=== PATIENT | female | born 1955 | race Asian ===

== ENCOUNTER 2018-01-20 14:10 | Inpatient (IN) | payer OTHER ==
[~2018-01-20] VITALS: Ht 149.9 cm; Wt 62.6 kg
[~2018-01-20 14:10] MED LIST: BENA20TA PO; DULO30EC PO; METF500T PO; OLAN10TA PO; PIOG45TA PO; RISP2TAB PO; SIMV40TA1 PO
[2018-01-20 14:21] VITALS: BP 177/89
--- NOTE | 2018-01-20 14:25 | NUR ---
62 YO FEMALE BIB FAMILY FOR FACE AND JAW PAIN FROM FALL, BRUISING TO JAW AND LEFT EYE NOTED. HX OF PARKINSONS AND DIABETES. PT IS RESTING W/ EMESIS BAG TO MOUTH. REPORTS THAT SHE FELL WHEN TRYING TO PICK SOMETHING OFF OF THE FLOOR. PT REPORTS PAIN 1/10 WHERE HER JAW/CHIN HIT THE GROUND. PERRLA INTACT. CMS INTACT. NO S/S OF ACUTE RESPIRATORY DISTRESS. PT BREATHING IS EVEN AND UNLABORED. LUNG SOUNDS CLEAR. ER MD FRANCO NOTIFIED OF PT CONDITION. SAFETY PRECAUTIONS IN PLACE. PT NEEDS MET AT THIS TIME. WILL CONTINUE TO MONITOR. Addendum: 01/20/[address] [facility] 62 YO FEMALE BIB FAMILY FOR FACE AND JAW PAIN FROM FALL, BRUISING TO JAW AND LEFT EYE NOTED. HX OF PARKINSONS AND DIABETES. PT IS RESTING W/ EMESIS BAG TO MOUTH. REPORTS THAT SHE FELL WHEN TRYING TO PICK SOMETHING OFF OF THE FLOOR. PT REPORTS PAIN 1/10 WHERE HER JAW/CHIN HIT THE GROUND. PERRLA INTACT. A&O X 4. GCS 15. CMS INTACT. NO S/S OF ACUTE RESPIRATORY DISTRESS. PT BREATHING IS EVEN AND UNLABORED. LUNG SOUNDS CLEAR. ER MD FRANCO NOTIFIED OF PT CONDITION. SAFETY PRECAUTIONS IN PLACE. PT NEEDS MET AT THIS TIME. WILL CONTINUE TO MONITOR.
--- NOTE | 2018-01-20 15:33 | NUR ---
PT TAKEN TO CT VIA GURIRIS ACCOMPANIED BY MARKETING WRITER.
--- NOTE | 2018-01-20 15:46 | NUR ---
PT RETUERNED FROM CT
--- NOTE | 2018-01-20 16:00 | NUR ---
ALMA ROSA CORTES REPORTED THAT PT WAS STRAIGHT CATHETERIZED, BUT NO URINE WAS PRESENT BECAUSE PT VOIDED PRIOR TO ARRIVING TO ER. ALMA ROSA CORTES REPORTED SHE IS LEAVING CATHETER IN UNTIL URINE PRESENT IN BAG TO PREVENT RE-CATHETERIZING PT LATER. PT UNABLE TO AMBULATE TO RESTROOM DUE TO UNSTEADY GAIT. UNABLE TO AMBULATE W/O FULL SUPPORT APPLIED TO FAMILY MEMBER. SAFETY PRECAUTIONS IN PLACE. WILL CONTINUE TO MONITOR.
[2018-01-20] MEDS ORDERED: LAM200 PO (16:05)
[2018-01-20] MEDS ORDERED: CARB1TAB18 PO (16:05)
--- NOTE | 2018-01-20 16:10 | NUR ---
PT VOIDED 300 ML OF CLEAR, YELLOW URINE. STRAIGHT CATHETER REMOVED.
[2018-01-20 16:14] LABS: HEMATOCRIT 42.2 % (36-48); HEMOGLOBIN 13.3 g/dL (12.0-16.0); MEAN CORPUSCULAR HEMOGLOBIN 27 pg (27-31); MEAN CORPUSCULAR HGB CONC 32 g/dL (33-37); MEAN CORPUSCULAR VOLUME 87 fL (80-94); PLATELET COUNT (AUTO) 242 K/uL (140-450); RED BLOOD CELL COUNT(AUTO) 4.86 MIL/uL (4.20-5.40); RED CELL DISTRIBUTION WIDTH 13.3 % (11.6-13.7); WHITE BLOOD COUNT (AUTO) 17.4 K/uL (4.8-10.8)
[2018-01-20 16:24] LABS: APPEARANCE,URINE CLEAR (CLEAR); BILIRUBIN,URINE NEGATIVE (NEGATIVE); BLOOD, URINE 2+ (NEGATIVE); COLOR,URINE YELLOW (YELLOW); LEUKOCYTE ESTERASE ,URINE NEGATIVE (NEGATIVE); NITRITE, URINE NEGATIVE (NEGATIVE); UGLUCOSE NEGATIVE (NEGATIVE)
[2018-01-20 16:29] LABS: ALBUMIN 4.2 g/dL (3.4-5.0); ANION GAP 14.7 (8-16); CARBON DIOXIDE 32.4 mmol/L (21-32); CREATININE 1.1 mg/dL (0.6-1.3); POTASSIUM 3.1 mmol/L (3.5-5.1); TOTAL BILIRUBIN 0.6 mg/dL (0.0-1.0)
[2018-01-20 16:30] LABS: LYMPHOCYTES % (MANUAL) 4 % (20-46); MONOCYTES % (MANUAL) 3 % (5-12)
[2018-01-20 16:38] LABS: RBC,URINE 3-10 (FEW) /HPF (0-5); WBC,URINE 0-5 (RARE) /HPF (0-5)
[2018-01-20] MEDS ORDERED: ACETAMINOPHEN 325 MG TAB PO PRN (17:35)
[2018-01-20] MEDS ORDERED: HYDROcodone/APAP 10/325 MG 1 TAB TAB PO PRN (18:15)
[2018-01-20] MEDS ORDERED: KCL 20 MEQ/WATER INJ PREMIX 200 ML IV ONE (18:25)
--- NOTE | 2018-01-20 19:05 | NUR ---
Patient will be admitted to care of DR LYNN. Admited toTELE. Will go to room 121A. Belongings list completed. Report to ALMA ROSA ELDRIDGE.
[2018-01-20] MEDS ORDERED: DEXTROSE 50% 50 ML SYR IVP PRN (19:15)
[2018-01-20] MEDS ORDERED: INSULIN LISPRO SLIDING SCALE 100 UNITS/ML VIAL SUBQ PRN (19:15)
[2018-01-20 19:30] VITALS: BP 126/86
--- NOTE | 2018-01-20 19:30 | NUR ---
REPORT RECEIVED FROM DAY NURSE JAZMYN ST. PT IN STABLE CONDITION. AAOX3, ON ROOM AIR. NO S/S OF DISTRESS NOTED. PT HAS BRUISING TO L EYE, BRUISING TO CHIN, AND SMALL LACERATIONS ON LOWER LIP. IV TO R WRIST 22G, PATENT AND INTACT. INFUSING WELL. SKIN WARM AND DRY TO TOUCH. RR EVEN/UNLABORED. INITIAL ASSESSMENT COMPLETED. PLAN OF CARE DISCUSSED WITH PT. PT NEEDS REINFORCEMENT. ALL SAFETY PRECAUTIONS MET, CALL LIGHT WITHIN REACH, WILL CONTINUE TO MONITOR.
--- NOTE | 2018-01-20 19:45 | NUR ---
PT REPORTS THAT ROOMMATE TOOK HOME MEDICATIONS HOME AND PT DOES NOT KNOW HER MEDICATIONS.
--- NOTE | 2018-01-20 20:00 | NUR ---
CALLED SON TO ASK WHAT MEDICATIONS PT IS ON AND TO ASK ABOUT MEDICAL HISTORY BUT SON STATES HE "DOES NOT KNOW ANYTHING ABOUT HIS MOTHERS HISTORY HE JUST LIVES WITH HER." SON STATED HE WILL BRING IN MEDICATION BOTTLES
--- NOTE | 2018-01-20 20:30 | NUR ---
PTS HOME MEDICATIONS BROUGHT IN BY SON. MADE DR. PRATHER AWARE OF PTS MEDICATIONS
[2018-01-20 21:07] LABS: PROTHROMBIN TIME 10.4 secs (10.8-13.4)
[2018-01-20] MEDS: NACL 0.9% 1,000 ML IV SCH (21:18)
[2018-01-20] MEDS: OLANZapine 5 MG TAB PO SCH (21:19)
[2018-01-20] MEDS: ATORVASTATIN 20 MG TAB PO SCH (21:19)
[2018-01-20] MEDS: BLOOD GLUCOSE MONITORING 1 DEV DEV FS SCH (21:28)
[2018-01-20 21:48] LABS: AMYLASE 92 U/L (25-115); CHOL/HDL RATIO 2.3 (1-4.5); HDL CHOLESTEROL 66 mg/dL (40-60); LDL (CALC) 76 mg/dL (60-100); LIPASE 143 U/L (73-393); THYROID STIMULATING HORMONE 0.76 uIU/mL (0.34-3.74); TRIGLYCERIDES 60 mg/dL (30-150)
--- NOTE | 2018-01-20 22:00 | NUR ---
PT IN STABLE CONDITION AT THIS TIME. NO S/S OF DISTRESS NOTED
[2018-01-21] VITALS (7 sets, daily range): BP systolic 128–195; BP diastolic 68–106
--- NOTE | 2018-01-21 | NUR ---
PT RESTING COMFORTABLY IN BED. NO S/S OF DISTRESS NOTED. VS STABLE
--- NOTE | 2018-01-21 04:15 | NUR ---
PTS B/P 174/92, PT VOMITING. PAGEJerad PRATHER Addendum: 01/21/18 at 0522 by Karen Wilkins RN PT HAS NO S/S OF DISTRESS, RR EVEN/UNLABORED
--- NOTE | 2018-01-21 04:47 | NUR ---
DR. PRATHER MADE AWARE, WILL COME TO SEE PT
[2018-01-21] MEDS: ONDANSETRON 4 MG/2 ML VIAL IVP PRN ×2 (05:06→11:56)
--- NOTE | 2018-01-21 05:22 | NUR ---
PT HAS NO S/S OF DISTRESS. RR EVEN/UNLABORED
[2018-01-21] MEDS: BLOOD GLUCOSE MONITORING 1 DEV DEV FS SCH ×4 (06:34→20:22)
--- NOTE | 2018-01-21 07:33 | NUR ---
REPORT GIVEN TO DAY SHIFT NURSE FOR CONTINUITY OF CARE, PT IN STABLE CONDITION. NO S/S OF DISTRESS NOTED.
[2018-01-21 07:44] LABS: BASOPHILS # (AUTO) 0.2 K/uL (0.00-0.22); BASOPHILS % (AUTO) 2.6 % (0.0-2.0); EOSINOPHILS # (AUTO) 0.1 K/uL (0-0.4); HEMATOCRIT 39.2 % (36-48); HEMOGLOBIN 12.7 g/dL (12.0-16.0); MEAN CORPUSCULAR HEMOGLOBIN 28 pg (27-31); MEAN CORPUSCULAR HGB CONC 32 g/dL (33-37); MEAN CORPUSCULAR VOLUME 86 fL (80-94); MONOCYTES # (AUTO) 0.5 K/uL (0.8-1.0); MONOCYTES % (AUTO) 6.1 % (1.7-9.3); NEUTROPHILS # (AUTO) 7.1 K/uL (1.8-7.7); NEUTROPHILS % (AUTO) 79.3 % (42.2-75.2); PLATELET COUNT (AUTO) 238 K/uL (140-450); RED BLOOD CELL COUNT(AUTO) 4.54 MIL/uL (4.20-5.40); WHITE BLOOD COUNT (AUTO) 8.9 K/uL (4.8-10.8)
[2018-01-21 07:58] LABS: MAGNESIUM 1.7 mg/dL (1.8-2.4); PHOSPHORUS 3.5 mg/dL (2.5-4.9)
[2018-01-21 08:09] LABS: ANION GAP 13.5 (8-16); CARBON DIOXIDE 30.4 mmol/L (21-32)
[2018-01-21] MEDS: CARBIDOPA/LEVODOPA 25/100 MG 1 TAB PO SCH ×3 (08:40→16:56)
[2018-01-21] MEDS: metFORMIN 500 MG TAB PO SCH ×2 (08:40→16:56)
[2018-01-21] MEDS: DOCUSATE SODIUM 100 MG GELCAP PO SCH (08:40)
[2018-01-21] MEDS: PANTOPRAZOLE 40 MG TABEC PO SCH (08:40)
[2018-01-21 08:48] LABS: POTASSIUM 2.9 mmol/L (3.5-5.1)
[2018-01-21] MEDS ORDERED: BENAZEPRIL 20 MG TAB PO SCH (09:00)
[2018-01-21] MEDS ORDERED: KCL 20 MEQ/WATER INJ PREMIX 200 ML IV SCH (09:55)
[2018-01-21] MEDS ORDERED: MAG SULF 2000 MG/WATER PREMIX 50 ML IV SCH (09:57)
--- NOTE | 2018-01-21 10:44 | NUR ---
PATIENT HAS BEEN SCREENED AND CATEGORIZED MODERATE NUTRITION RISK. PATIENT WILL BE SEEN WITHIN 3-5 DAYS OF ADMISSION. 01/23/18 - 01/25/[address]
--- NOTE | 2018-01-21 12:09 | NUR ---
PATIENT COMPLAINED OF DIZZINESS, PAIN, AND EMESIS X2. MEDS WERE GIVEN PER ORDER. WILL CONTINUE TO MONITOR. US TECH AT BEDSIDE
--- NOTE | 2018-01-21 13:13 | NUR ---
DR. HENDERSON WAS MADE AWARE OF PATIENT'S COMPLAINT OF DIZZINESS, CONSISTENT HIGH BP, ADVISED TO CONTINUE TO MONITOR Addendum: 01/21/18 at 1315 by Nicole Wallace RN DR. RUIZ IS AT BEDSIDE
[2018-01-21] MEDS ORDERED: POTASSIUM CHLORIDE 40 MEQ, LIDOCAINE 1% 25 MG in NACL 0.9% 250 ML IV SCH (14:00)
[2018-01-21] MEDS ORDERED: MECLIZINE 25 MG TAB PO PRN (14:20)
--- NOTE | 2018-01-21 15:06 | NUR ---
PATIENT AWAKE, ALERT. RESPIRATION EVEN, UNLABOR ON ROOM AIR. PATIENT STATED SHE IS HUNGRY, EXPLAINED TO THE PATIENT WHY SHE NEEDS TO BE ON NPO DUE TO NAUSEA/ VOMITING. PATIENT VERBALIZED UNDERSTANDING. NO DISTRESS NOTED AT THIS TIME
--- NOTE | 2018-01-21 17:07 | NUR ---
PATIENT AWAKE, ALERT. RESPIRATION EVEN, UNLABOR ON ROOM AIR. COMPLAINED OF BEING HUNGRY, EXPLAINED TO PATIENT SHE STILL NEEDS NPO TO PREVENT NAUSEA/ VOMITING. PATIENT VERBALIZED UNDERSTANDING. CALL LIGHT WITHIN REACH
[2018-01-21] MEDS ORDERED: GABA-638 PO (18:08)
[2018-01-21] MEDS ORDERED: MIRT15TA PO (18:08)
[2018-01-21 19:09] LABS: ANION GAP 13.4 (8-16); CARBON DIOXIDE 30.6 mmol/L (21-32); CREATININE 1.1 mg/dL (0.6-1.3)
--- NOTE | 2018-01-21 19:17 | NUR ---
ENDORSEMENT GIVEN TO SOCIAL WORKER AIDE NURSE. PATIENT IS STABLE AT THIS TIME
--- NOTE | 2018-01-21 19:19 | NUR ---
RECEIVED REPORT FROM NIGHT RN. PT RESTING IN BED. AAOX4. NO S/S OF ACUTE DISTRESS. PT DENIES PAIN AT THIS TIME. IV SITE PATENT AND INTACT. PLAN OF CARE DISCUSSED. CALL LIGHT WITHIN REACH. SAFETY MEASURES ENSURED. WILL CONTINUE TO MONITOR.
[2018-01-21] MEDS: NACL 0.9% 1,000 ML IV SCH (20:22)
[2018-01-21] MEDS: ATORVASTATIN 20 MG TAB PO SCH (20:23)
[2018-01-21] MEDS: OLANZapine 5 MG TAB PO SCH (20:23)
--- NOTE | 2018-01-21 20:25 | NUR ---
DUE MEDS GIVEN. NO S/S OF ACUTE DISTRESS. CALL LIGHT WITHIN REACH. SAFETY MEASURES ENSURED. WILL CONTINUE TO MONITOR.
[2018-01-22] VITALS: BP 142/85
[2018-01-22 04:00] VITALS: BP 154/85
[2018-01-22] MEDS: BLOOD GLUCOSE MONITORING 1 DEV DEV FS SCH ×4 (06:38→20:05)
--- NOTE | 2018-01-22 07:17 | NUR ---
RECEIVED REPORT FROM TORCH STRAIGHTENER AND HEATER NURSE AT BEDSIDE FOR CONTINUITY OF CARE. PATEINT RESTING IN BED WITH EYES CLOSED. RESP EVEN AND UNLABORED.PATIENT WITH R WRIST 22G WITH NS @20ML/HR, PATIENT WITH NOTED DISCOLORATIONS TO FACE.
--- NOTE | 2018-01-22 07:18 | NUR ---
ENDORSED PLAN OF CARE TO DAY RN. PT REMAINS STABLE
[2018-01-22 07:41] LABS: ANION GAP 15.4 (8-16); CREATININE 1.1 mg/dL (0.6-1.3); POTASSIUM 3.4 mmol/L (3.5-5.1)
[2018-01-22 07:50] VITALS: BP 157/75
--- NOTE | 2018-01-22 08:00 | NUR ---
INITIAL ASSESSMENT PERFORMED. VSS.PT AWAKE IN BED STATING SHE WOULD LIKE TO TALK TO MD. INFORMED PT THEY WOULD BE COMING AROUND WHEN THEY DO ROUNDS. RESPONDS TO QUESTIONS APPROPRIATELY. PERRL, BILATERAL 3MM PUPILS.DENIES [place]. NO C/O PAIN. NO ACUTE DISTRESS NOTED. LUNG SOUNDS CLEAR X ALL LOBES. NO SOB NOTED. BOWEL SOUNDS ACTIVE X4 LOBES. IV SITE TO R WRIST 22G. PATENT AND INTACT. NS @20ML/HR. SKIN INTACT.DISCUSSED PLAN OF CARE WITH PT, STATED UNDERSTANDING AND AGREEMENT. BED IN LOW POSITION. CALL LIGHT WITHIN REACH. WILL CONT TO MONITOR.
[2018-01-22] MEDS: DOCUSATE SODIUM 100 MG GELCAP PO SCH (08:33)
[2018-01-22] MEDS: PANTOPRAZOLE 40 MG TABEC PO SCH (08:34)
[2018-01-22] MEDS: BENAZEPRIL 20 MG TAB PO SCH (08:34)
[2018-01-22] MEDS: metFORMIN 500 MG TAB PO SCH ×2 (08:34→16:25)
[2018-01-22] MEDS: CARBIDOPA/LEVODOPA 25/100 MG 1 TAB PO SCH ×3 (08:35→16:25)
--- NOTE | 2018-01-22 08:35 | NUR ---
ADMINISTERED SCHEDULED MEDICATIONS ORDERED. PT TOLERATED WELL . PT RESTING IN BED WITH EYES CLOSED . NO ACUTE DISTRESS. RESPONDS APPROPRIATELY. CALL LIGHT WITHIN REACH. WILL CONT TO MONITOR.
--- NOTE | 2018-01-22 09:00 | NUR ---
ADMINISTERED SCHEDULED MEDICATIONS ORDERED WITH TORADOL PATIENT C/O MUSCULAR AND ABD PAIN 04/11 .CALL LIGHT WITHIN REACH. WILL CONT TO MONITOR PT. Addendum: 01/22/18 at 1059 by nAeta Pink RN WRONG PATIENT DISREGARD NOTE
--- NOTE | 2018-01-22 10:30 | NUR ---
PT IN BED RESTING WITH EYES CLOSED. EASILY WOKEN. RESPONDS APPROPRIATELY TO QUESTIONS. CALL LIGHT WITHIN REACH. WILL CONT TO MONITOR PT.
--- NOTE | 2018-01-22 10:40 | NUR ---
ADMINISTERED MAALOX AND MORPHINE ORDERED. PATIENT CONT TO C/O 06/11 PAIN ABDOMINALLY. HR 55, PER PT BASELINE HR BELOW 60. CALL LIGHT WITHIN REACH. WILL CONT TO MONITOR PT. Addendum: 01/22/18 at 1059 by Aneta Pink RN WRONG PATIENT DISREGARD NOTE
--- NOTE | 2018-01-22 12:00 | NUR ---
FRIEND AT BEDSIDE. PT ALERT AND ABLE TO MAKE NEEDS KNOWN. NO ACUTE DISTRESS NOTED. PATIENT AT THE TIME REFUSING PLACEMENT IN SNF. SS PRESENT DURING CONVERSATION. BED ALARM ON. CALL LIGHT WITHIN REACH. WILL CONT TO MONITOR PT.
[2018-01-22] MEDS ORDERED: CALCIUM CARBONATE 500 MG TAB PO SCH (12:30)
[2018-01-22] MEDS ORDERED: POTASSIUM CHLORIDE 20% 40 MEQ/15 ML UDC PO SCH (12:30)
--- NOTE | 2018-01-22 13:00 | NUR ---
Social Director Notes: I call Patient's Son Chauncey Norman at to discuss, confirm and gather patient's information. I provided Patient's updated status, progress and discussed MD recommendations to SNF for Physical Therapy. According to son Chauncey Patient is at home sometimes alone and that is how she hurt herself when she took the fall. Per Patient's son it is important that Patient gets the care she needs and go to SNF for her Physical Therapy. I agreed with Mr. Norman however; I also explained to him that Patient needs to be on agreement in order to be placed on a SNF, and suggested him to have a conversation may be even explained further about the process, length of stay and therapy she will be benefiting form going to SNF in a short term only now that he knows and is aware with information to provide to her in her language. I also discuss with Mr. Norman that patient was worried to be left there for a longer term and it is possible that information did not translate well in her language and hearing it from him it will assist patient and her concerns. He agreed and stated that he will visit his mother manjinder and will talk to her. Mr. Norman thank me for my information and assistance, stated having no further questions and concerns and I ended the call.
--- NOTE | 2018-01-22 13:30 | NUR ---
REPORTED TO DR HENDERSON ORTHOSTATIC BLOOD PRESSURE OF LAYING 177/82, HR 76. SITTING 179/84 HR 76. PATIENT REFUSED TO STAND UP. PT VERBALIZED SHE WAS UNABLE TO STAND. Addendum: 01/22/18 at 1410 by Aneta Pink RN PT VOMITED 200ML WHEN SAT UP. DR HENDERSON MADE AWARE.
--- NOTE | 2018-01-22 14:34 | NUR ---
1420 SPOKE WITH PT PER PTS REQUEST AND SHE STATED THAT SHE DOES WANT TO GO TO A NURSING FACILITY FOR PT AND DID WANT IT IN [place]. IN AGREEMENT TO [facility] THE PHYSICIANS SEEING HER HERE CAN SEE HER AT THE SNF.
--- NOTE | 2018-01-22 15:40 | NUR ---
PATIENT IN BED. NO ACUTE DISTRESS NOTED. NO C/O PAIN OR DISCOMFORT. BED ALARM ON. CALL LIGHT WITHIN REACH. WILL CONT TO MONITOR PT.
--- NOTE | 2018-01-22 15:41 | NUR ---
FAXED INQUIRY TO [facility] [phone] PHONE [phone]
[2018-01-22 16:00] VITALS: BP 166/72
--- NOTE | 2018-01-22 16:25 | NUR ---
ADMINISTERED SCHEDULED MEDICATIONS ORDERED WELL MECLIZINE FOR DIZZINESS.BED ALARM ON. CALL LIGHT WITHIN REACH. WILL CONT TO MONITOR PT.
--- NOTE | 2018-01-22 19:20 | NUR ---
ENDORSED REPORT TO VOICE AND DATA TECHNICIAN NURSE AT BEDSIDE FOR CONTINUITY OF CARE. PATIENT STABLE
--- NOTE | 2018-01-22 19:21 | NUR ---
PATIENT REPORT RECEIVED FROM MORNING NURSE AT BEDSIDE. PATIENT IS AWAKE AND ALERT. NO SIGNS AND SYMPTOMS OF DISTRESS NOTED. FAMILY MEMBER IS AT BEDSIDE. IV SITE NOTED ON RIGHT HAND, IVF INFUSING WELL. PLAN OF CARE DISCUSSED WITH PATIENT. PATIENT VERBALIZED UNDERSTANDING. BED IN LOWEST POSITION, SIDE RAILS UP AND CALL LIGHT WITHIN REACH. WILL CONTINUE TO MONITOR.
[2018-01-22] MEDS: NACL 0.9% 1,000 ML IV SCH (20:20)
[2018-01-22] MEDS: OLANZapine 5 MG TAB PO SCH (20:23)
[2018-01-22] MEDS: ATORVASTATIN 20 MG TAB PO SCH (20:23)
--- NOTE | 2018-01-22 20:34 | NUR ---
DR PRATHER MADE AWARE OF PATIENT'S BP OF 160/78
[2018-01-22] MEDS: METOPROLOL SUCCINATE 50 MG TABER PO SCH (22:12)
--- NOTE | 2018-01-22 23:00 | NUR ---
CHECKED ON PATIENT. PATIENT IS ASLEEP. NO SIGNS AND SYMPTOMS OF DISTRESS NOTED. BREATHING EVEN AND UNLABORED. WILL CONTINUE TO MONITOR.
[2018-01-23] VITALS: BP_SYST 156; BP_SYST 165; BP_DIAS 73; BP_DIAS 81
--- NOTE | 2018-01-23 02:00 | NUR ---
CHECKED ON PATIENT. PATIENT IS ASLEEP. NO SIGNS AND SYMPTOMS OF DISTRESS NOTED. WILL CONTINUE TO MONITOR
[2018-01-23] MEDS: BLOOD GLUCOSE MONITORING 1 DEV DEV FS SCH ×4 (06:33→20:29)
--- NOTE | 2018-01-23 07:15 | NUR ---
PATIENT REPORT GIVEN TO MORNING NURSE AT BEDSIDE FOR CONTINUITY OF CARE. PATIENT IS IN STABLE CONDITION.
--- NOTE | 2018-01-23 07:16 | NUR ---
RECEIVED REPORT FROM VELOCITY SHOOTER NURSE MAGDALENA AT BEDSIDE FOR CONTINUITY OF CARE. PT IS AWAKE AND ORIENTED. INTRODUCED SELF AND UPDATED BOARD. PT DENIES PAIN. IV TO R WRIST 22G INTACT. NS @ 20ML/HR. LUNG SOUNDS CLEAR ON AUSCULTATION. ON RA O2 SAT 97%. NO SIGNS OF DISTRESS. BED IN LOW POSITION, WHEELS LOCKED, CALL LIGHT WITHIN REACH. WILL CONTINUE TO MONITOR.
[2018-01-23 07:42] LABS: ANION GAP 11.1 (8-16); CARBON DIOXIDE 31.3 mmol/L (21-32); CREATININE 1.1 mg/dL (0.6-1.3); POTASSIUM 3.4 mmol/L (3.5-5.1)
[2018-01-23 08:00] VITALS: BP 161/84
[2018-01-23] MEDS: DOCUSATE SODIUM 100 MG GELCAP PO SCH (08:23)
[2018-01-23] MEDS: CARBIDOPA/LEVODOPA 25/100 MG 1 TAB PO SCH ×3 (08:23→17:25)
[2018-01-23] MEDS: metFORMIN 500 MG TAB PO SCH ×2 (08:24→17:25)
[2018-01-23] MEDS: BENAZEPRIL 20 MG TAB PO SCH (08:24)
[2018-01-23] MEDS: PANTOPRAZOLE 40 MG TABEC PO SCH (08:24)
[2018-01-23] MEDS ORDERED: POTASSIUM CHLORIDE 20% 40 MEQ/15 ML UDC PO SCH (09:00)
[2018-01-23] MEDS ORDERED: CALCIUM CARBONATE 500 MG TAB PO SCH (09:00)
--- NOTE | 2018-01-23 10:45 | NUR ---
ASSISTED PT TO BEDPAN. REINFORCED TEACHING FOR CALL LIGHT. PT VERBALIZED UNDERSTANDING. RESIDENT CAME IN AND SPOKE WITH PT. AWARE FOR PLAN FOR SNF PLACEMENT. NO COMPLAINTS AT THIS TIME. BED ALARM ON, CALL LIGHT WITHIN REACH. WILL CONTINUE TO MONITOR.
--- NOTE | 2018-01-23 12:43 | NUR ---
PT WAS SITTING AT EDGE OF BED. INFORMED PT TO WAIT FOR PHYSICAL THERAPY TO GET UP OUT OF PT. ASSISTED PT BACK TO BED. PT VERBALIZED UNDERSTANDING. SITTING UP EATING LUNCH TRAY. BED ALARM ON, WILL CONTINUE TO MONITOR.
--- NOTE | 2018-01-23 14:10 | NUR ---
PT UP AND OUT OF BED WITH PHYSICAL THERAPY
--- NOTE | 2018-01-23 15:01 | NUR ---
Social Service Note: Mendy from [facility] / came to evaluate patient, she stated patient has been accepted and she will contact charge nurse Jennifer and provide her with room number.
--- NOTE | 2018-01-23 15:24 | NUR ---
RECEIVED CALL FROM [facility] STATED PT CAN GO TO ROOM [address] UNDER DR[address] COOK. INSPECTOR METAL CAN TIME 6PM.
--- NOTE | 2018-01-23 15:30 | NUR ---
PHYSICAL THERAPY CO-SIGN The Physical Therapy Progress Notes documented by Night Time Nanny have been reviewed. I concur with the documentation of this MANAGER BUSINESS INTELLIGENCE. Plan: continue PT as per plan of care if she remains in this hospital. Reviewed/Co-Signed by: Reina Cervantes,PT Documentation Done by: Kari Caldwell,MANAGER BUSINESS INTELLIGENCE Addendum: 01/23/18 at 1546 by Reina Cervantes PT Amended: Links added.
[2018-01-23 16:00] VITALS: BP 141/75
[2018-01-23] MEDS ORDERED: BENA20TA5 PO (16:00)
[2018-01-23] MEDS ORDERED: OSC500 PO (16:00)
[2018-01-23] MEDS ORDERED: CARB1TAB17 PO (16:00)
[2018-01-23] MEDS ORDERED: MECL-272 PO (16:00)
--- NOTE | 2018-01-23 16:45 | NUR ---
CALLED PT'S SON EKRRI AND LEFT MESSAGE ABOUT PT TRANSFER TO [facility] TODAY. LEFT CALL BACK NUMBER
--- NOTE | 2018-01-23 18:53 | NUR ---
CALLED [facility] AND GAVE REPORT TO BARRON. FOUNTAIN ROLLER ASSEMBLER TIME AT 8PM. GAVE CALL BACK NUMBER
--- NOTE | 2018-01-23 19:43 | NUR ---
ENDORSED PT TO DRIER TENDER NAPHTHALENE NURSE SHIVANI AT BEDSIDE FOR CONTINUITY OF CARE. PT IN STABLE CONDITION.
--- NOTE | 2018-01-23 19:44 | NUR ---
RECEIVED REPORT FROM DAY SHIFT RN. PATIENT AWAKE ALERT, CONFUSED. NO S/S OF DISTRESS NOTED, RESPIRATION EVEN AND UNLABORED, ON ROOM AIR. PATIENT IS SITTING UP IN THE BED, WAITING TO BE PICKED UP. PER DAY SHIFT RN, PATIENT WILL BE TRANSFERRED TO [facility], AND MANAGER PRODUCT DESIGN TIME WILL BE 1999. PATIENT'S SON IS AWARE THAT PATIENT WILL BE TRANSFERRED TO [facility]. CALL LIGHT WITHIN REACH, SAFETY MEASURE ENSURED, WILL CONTINUE TO MONITOR.
[2018-01-23 20:00] VITALS: BP 138/83
[2018-01-23] MEDS: ATORVASTATIN 20 MG TAB PO SCH (20:40)
[2018-01-23] MEDS: NACL 0.9% 1,000 ML IV SCH (20:40)
[2018-01-23] MEDS: METOPROLOL SUCCINATE 50 MG TABER PO SCH (20:40)
--- NOTE | 2018-01-23 20:40 | NUR ---
DUE MEDICATION GIVEN, PATIENT TOLERATED WELL. NO S/S OF DISTRESS NOTED, RESPIRATION EVEN AND UNLABORED, CALL LIGHT WITHIN REACH, SAFETY MEASURE ENSURED, WILL CONTINUE TO MONITOR.
[2018-01-23] MEDS: OLANZapine 5 MG TAB PO SCH (20:41)
--- NOTE | 2018-01-23 22:26 | NUR ---
PATIENT WAS PICKED UP BY ANTHONY FROM [facility] IN STABLE CONDITION. BRUISE STILL NOTED ON THE FACE, CHARGE NURSE IS NOTIFIED.
--- NOTE | 2018-01-23 22:55 | NUR ---
ANTHONY FROM THE [facility] CALLED ME SAID," THE PATIENT DOES NOT WANT TO GO INTO THE [facility]." INFORMED CHARGE NURSE, ASKED ANTHONY IF WE COULD WHEEL HER TO THE [facility], ANTHONY CALLED HER CLOTHING BUSHELER AND AGREED TO WHEEL THE PATIENT TO THE [facility]. CHARGE NURSE AND ONE SECURITY AND ANTHONY WHEELED THE PATIENT TO THE [facility]. Addendum: 01/24/18 at 0614 by Lucy Hernández RN CHARGE NURSE TRIED TO CALL HER SON, BUT NO ONE ANSWERED THE PHONE.
--- NOTE | 2018-01-23 23:25 | NUR ---
CHARGE NURSE CAME BACK AND SAID," THE LADY WAS YELLING,' I WANT TO GO BACK TO MY ROOM, I DON'T WANT TO GO THERE, MY SON CANNOT PAY FOR THAT' WHEN WE WERE WHEELING HER TO THE [facility]. HOWEVER, THE PATIENT WAS RECEIVED BY THE NURSE FROM THE [facility]."
== END 2018-01-23 23:00 | DRG 640 ==
LOC: MED 14:10 → MTU 17:46
PROVIDERS: ADMIT Student in an Organized Health Care Education/Training Program; ATTEND Student in an Organized Health Care Education/Training Program
DX: E87.6 Hypokalemia (principal); N17.0 Acute kidney failure with tubular necrosis; D68.59 Other primary thrombophilia; E11.69 Type 2 diabetes mellitus with other specified complication; G90.9 Disorder of the autonomic nervous system, unspecified; G20 Parkinson's disease; S09.90XA Unspecified injury of head, initial encounter; W01.0XXA Fall on same level from slipping, tripping and stumbling without subsequent striking against object, initial encounter; I10 Essential (primary) hypertension; E78.5 Hyperlipidemia, unspecified; R31.9 Hematuria, unspecified; E78.00 Pure hypercholesterolemia, unspecified; F29 Unspecified psychosis not due to a substance or known physiological condition; H50.10 Unspecified exotropia; S09.93XA Unspecified injury of face, initial encounter; Y92.098 Other place in other non-institutional residence as the place of occurrence of the external cause; Y93.89 Activity, other specified; Y99.8 Other external cause status; Z79.84 Long term (current) use of oral hypoglycemic drugs
CPT/HCPCS: 36415; 70450; 70486; 71045; 76770; 80048; 80053; 81001; 82150; 82948; 83036; 83690; 83735; 83880; 84100; 84439; 84443; 84479; 84484; 85025; 85610; 85730; 87081; 93005; 93880; 93925; 93970; 97110; 97116; 97140; 97530; 99285; C1758; J1815; J2001; J2405; J3475; J3480; J7030; J8597; Q0092

== ENCOUNTER 2018-01-24 00:42 | Inpatient (IN) | payer OTHER ==
[~2018-01-24] VITALS: Ht 154.9 cm; Wt 63.5 kg
[~2018-01-24 00:42] MED LIST changes: -BENA20TA PO; +BENA20TA5 PO; +CARB1TAB17 PO; -DULO30EC PO; +LAM200 PO; +MECL-272 PO; +MIRT15TA PO; +OSC500 PO; -PIOG45TA PO; -RISP2TAB PO; -SIMV40TA1 PO
[2018-01-24 00:57] VITALS: BP 149/79
--- NOTE | 2018-01-24 00:57 | NUR ---
PT [facility] BLS. TAKEN TO BED 2
--- NOTE | 2018-01-24 01:10 | NUR ---
62/F BIBA, WITH CC OF ALOC, WAS COMBATIVE AND SCREAMING, PT WAS PLACED ON 4-POINT RESTRAINTS. PT WAS D/C'ED FROM [facility] 1 HR AGO. PT HAS MULTIPLE BRUISES, INCLUDING L PERIORBITAL AREA, CHIN AND L ELBOW. PT IS CONFUSED AT THIS TIME, PER DRAFTER ELECTRONIC. UNABLE TO ASSESS OBTAIN HX AT THIS TIME, HX TAKEN FROM TRIAGE. PT IS RESTING COMFORTABLY IN BED, RESPIRATIONS EVEN AND UNLABORED. PLACED ON O2 2L NC. SAFETY MEASURES ENSURED.
--- NOTE | 2018-01-24 01:15 | NUR ---
PT SLEEPING COMFORTABLY, RESPIRATIONS EVEN AND UNLABORED. VSS. 4-POINT RESTRAINTS IN PLACE, ALL EXTREMITIES PINK, <3s CAP REFILL, +PERFUSION.
--- NOTE | 2018-01-24 01:30 | NUR ---
PT SLEEPING COMFORTABLY, RESPIRATIONS EVEN AND UNLABORED. VSS. 4-POINT RESTRAINTS IN PLACE, ALL EXTREMITIES PINK, <3s CAP REFILL, +PERFUSION.
--- NOTE | 2018-01-24 01:45 | NUR ---
PT SLEEPING COMFORTABLY, RESPIRATIONS EVEN AND UNLABORED. VSS. 4-POINT RESTRAINTS IN PLACE, ALL EXTREMITIES PINK, <3s CAP REFILL, +PERFUSION.
--- NOTE | 2018-01-24 02:00 | NUR ---
PT SLEEPING COMFORTABLY, RESPIRATIONS EVEN AND UNLABORED. VSS. 4-POINT RESTRAINTS IN PLACE, ALL EXTREMITIES PINK, <3s CAP REFILL, +PERFUSION.
--- NOTE | 2018-01-24 02:15 | NUR ---
PT SLEEPING COMFORTABLY, RESPIRATIONS EVEN AND UNLABORED. VSS. 4-POINT RESTRAINTS IN PLACE, ALL EXTREMITIES PINK, <3s CAP REFILL, +PERFUSION.
--- NOTE | 2018-01-24 02:30 | NUR ---
PT SLEEPING COMFORTABLY, RESPIRATIONS EVEN AND UNLABORED. VSS. 4-POINT RESTRAINTS IN PLACE, ALL EXTREMITIES PINK, <3s CAP REFILL, +PERFUSION.
--- NOTE | 2018-01-24 02:45 | NUR ---
PT SLEEPING COMFORTABLY, RESPIRATIONS EVEN AND UNLABORED. VSS. 4-POINT RESTRAINTS IN PLACE, ALL EXTREMITIES PINK, <3s CAP REFILL, +PERFUSION.
--- NOTE | 2018-01-24 03:00 | NUR ---
PT SLEEPING COMFORTABLY, RESPIRATIONS EVEN AND UNLABORED. VSS. 4-POINT RESTRAINTS IN PLACE, ALL EXTREMITIES PINK, <3s CAP REFILL, +PERFUSION.
--- NOTE | 2018-01-24 03:15 | NUR ---
PT SLEEPING COMFORTABLY, RESPIRATIONS EVEN AND UNLABORED. VSS. 4-POINT RESTRAINTS IN PLACE, ALL EXTREMITIES PINK, <3s CAP REFILL, +PERFUSION.
--- NOTE | 2018-01-24 03:30 | NUR ---
PT SLEEPING COMFORTABLY, RESPIRATIONS EVEN AND UNLABORED. VSS. 2-POINT RESTRAINTS IN PLACE, ALL EXTREMITIES PINK, <3s CAP REFILL, +PERFUSION.
--- NOTE | 2018-01-24 03:45 | NUR ---
PT SLEEPING COMFORTABLY, RESPIRATIONS EVEN AND UNLABORED. VSS. 4-POINT RESTRAINTS IN PLACE, ALL EXTREMITIES PINK, <3s CAP REFILL, +PERFUSION. Addendum: 01/24/18 at 0513 by NITA 2-POINT RESTRAINTS
[2018-01-24 03:59] LABS: HEMATOCRIT 42.5 % (36-48); HEMOGLOBIN 13.5 g/dL (12.0-16.0); MEAN CORPUSCULAR HEMOGLOBIN 28 pg (27-31); MEAN CORPUSCULAR HGB CONC 32 g/dL (33-37); MEAN CORPUSCULAR VOLUME 87.4 fL (80-94); PLATELET COUNT (AUTO) 246 K/uL (140-450); RED BLOOD CELL COUNT(AUTO) 4.86 MIL/uL (4.20-5.40); WHITE BLOOD COUNT (AUTO) 12.8 K/uL (4.8-10.8)
--- NOTE | 2018-01-24 04:00 | NUR ---
PT SLEEPING COMFORTABLY, RESPIRATIONS EVEN AND UNLABORED. VSS. 2-POINT RESTRAINTS IN PLACE, ALL EXTREMITIES PINK, <3s CAP REFILL, +PERFUSION.
[2018-01-24 04:09] LABS: ANION GAP 17.4 (8-16); CARBON DIOXIDE 29.1 mmol/L (21-32); CHLORIDE 101 mmol/L (98-107); CREATININE 1.5 mg/dL (0.6-1.3); GFR ARICAN-AMERICAN 45 mL/min (>90); GLUCOSE 141 mg/dL (74-106); POTASSIUM 3.5 mmol/L (3.5-5.1); SODIUM SERUM 144 mmol/L (136-145); UREA NITROGEN, BLOOD 25 mg/dL (7-18)
--- NOTE | 2018-01-24 04:15 | NUR ---
PT SLEEPING COMFORTABLY, RESPIRATIONS EVEN AND UNLABORED. VSS. 2-POINT RESTRAINTS IN PLACE, ALL EXTREMITIES PINK, <3s CAP REFILL, +PERFUSION.
[2018-01-24 04:16] LABS: ALBUMIN 3.9 g/dL (3.4-5.0); ASPARTATE AMINOTRANSFERASE 44 U/L (15-37); TOTAL BILIRUBIN 0.5 mg/dL (0.0-1.0)
[2018-01-24 04:29] LABS: LYMPHOCYTES % (MANUAL) 16 % (20-46); MONOCYTES % (MANUAL) 8 % (5-12)
--- NOTE | 2018-01-24 04:30 | NUR ---
PT SLEEPING COMFORTABLY, RESPIRATIONS EVEN AND UNLABORED. VSS. 2-POINT RESTRAINTS IN PLACE, ALL EXTREMITIES PINK, <3s CAP REFILL, +PERFUSION.
--- NOTE | 2018-01-24 04:45 | NUR ---
PT SLEEPING COMFORTABLY, RESPIRATIONS EVEN AND UNLABORED. VSS. 2-POINT RESTRAINTS IN PLACE, ALL EXTREMITIES PINK, <3s CAP REFILL, +PERFUSION.
--- NOTE | 2018-01-24 04:58 | NUR ---
Dr. Martinez evaluating patient.
--- NOTE | 2018-01-24 05:05 | NUR ---
PT IS MORE ALERT. PER AGENT TICKETING GATE ABLE TO TRANSLATE, PT IS MORE ALERT, AOX3, CONFUSED AT TIMES. PT ABLE TO AMBULATE WITH STANDBY ASSIST TO RESTROOM. RESTRAINTS REMOVED AT THIS TIME.
[2018-01-24 05:07] LABS: APPEARANCE,URINE CLEAR (CLEAR); BILIRUBIN,URINE NEGATIVE (NEGATIVE); BLOOD, URINE 1+ (NEGATIVE); COLOR,URINE YELLOW (YELLOW); LEUKOCYTE ESTERASE ,URINE NEGATIVE (NEGATIVE); NITRITE, URINE NEGATIVE (NEGATIVE); UGLUCOSE NEGATIVE (NEGATIVE)
--- NOTE | 2018-01-24 05:09 | NUR ---
CALLED PT'S CHILD HERBER CROWDER, NO ANSWER, LEFT VOICEMAIL
[2018-01-24 05:21] LABS: RBC,URINE 0-5 (RARE) /HPF (0-5); WBC,URINE 0-5 (RARE) /HPF (0-5)
[2018-01-24 05:31] LABS: BARBITURATE, URINE NEG. ng/ml (NEG <=200); BENZODIAZEPINE, URINE NEG. ng/mL (NEG <=200); CANNABINOID, URINE NEG. ng/mL (NEG <=50); COCAINE, URINE NEG. ng/mL (NEG <=300); OPIATE, URINE NEG. ng/mL (NEG <=2000); PHENCYCLIDINE SCREEN,URINE NEG. ng/mL (NEG <=25)
[2018-01-24] MEDS ORDERED: MORPHINE SULFATE 2 MG/ML SYR IVP PRN (05:40)
[2018-01-24] MEDS ORDERED: HYDROcodone/APAP 7.5/325 MG 1 TAB PO PRN (05:40)
[2018-01-24] MEDS ORDERED: ONDANSETRON 4 MG/2 ML VIAL IM/IVP PRN (05:40)
[2018-01-24] MEDS ORDERED: DOCUSATE SODIUM 100 MG GELCAP PO PRN (05:40)
[2018-01-24] MEDS ORDERED: ACETAMINOPHEN 325 MG TAB PO PRN (05:40)
[2018-01-24] MEDS ORDERED: MECLIZINE 25 MG TAB PO PRN ×2 (05:45→07:25)
--- NOTE | 2018-01-24 06:12 | NUR ---
Patient will be admitted to care of [facility]. Admited to TELE. Will go to room 107A. Belongings list completed.
--- NOTE | 2018-01-24 06:25 | NUR ---
ADMITTED PATIENT TO THE TELE UNIT, PATIENT AWAKE, BUT VERY CONFUSED AND AGITATED. PATIENT KEEPS ASKING FOR A TELEPHONE TO CALL HER SON, AND TRYING TO GET OUT OF THE BED. HANDED A TELEPHONE TO THE PATIENT, PATIENT DIALED SOME NUMBER AND STARTED TO TALK, BUT I COULD HEAR NO BODY WAS ON THE TELEPHONE. TELE MONITOR PLACED ON PATIENT, CALL LIGHT WITHIN REACH, SAFETY MEASURE ENSURED, WILL CONTINUE TO MONITOR.
[2018-01-24 06:30] VITALS: BP 159/91
[2018-01-24] MEDS: NACL 0.9% 1,000 ML IV SCH ×3 (06:34→22:48)
[2018-01-24 06:43] LABS: CHOL/HDL RATIO 2.4 (1-4.5); FREE T4 (FREE THYROXINE) 1.21 ng/dL (0.76-1.46); MAGNESIUM 1.8 mg/dL (1.8-2.4); THYROID STIMULATING HORMONE 2.21 uIU/mL (0.34-3.74)
[2018-01-24 07:01] LABS: PROTHROMBIN TIME 10.5 secs (10.8-13.4)
--- NOTE | 2018-01-24 07:10 | NUR ---
ENDORSED PLAN OF CARE TO DAY SHIFT NURSE. PATIENT IS IN STABLE CONDITION, BUT CONTINUOUS TALKING TO HERSELF AND DIALING TELEPHONE.
--- NOTE | 2018-01-24 07:15 | NUR ---
RECEIVED REPORT FROM PROBATION SUPERVISOR NURSE. PT IS LAYING IN BED SEMI LIMA POSITIONS, PT IS AAOX1, CONFUSED, PT HAS DISCOLORATION ON LEFT EYE AND CHIN, PT HAS IV ON THE LEFT AC, PATENT, INTACT, FLUSHING WELL, NO S/S OF RESPIRATORY DISTRESS NOTED, DISCUSSED PLAN OF CARE WITH PT, PT UNABLE TO COMPREHEND AT THIS TIME, CALL LIGHT IS WITHIN REACH, WILL CONTINUE TO MONITOR.
--- NOTE | 2018-01-24 07:30 | NUR ---
PT ATTEMPTED TO GET OUT OF BED MULTIPLE TIMES WITHOUT ASKING FOR HELP OR PRESSING THE CALL LIGHT.
--- NOTE | 2018-01-24 07:31 | NUR ---
PER ENGINEER PROCESS NURSE, PATIENT'S IV FLUIDS WERE STARTED AT 0634 AM.
[2018-01-24] MEDS: CARBIDOPA/LEVODOPA 25/100 MG 1 TAB PO SCH ×3 (09:43→17:50)
[2018-01-24] MEDS: CALCIUM CARBONATE 500 MG TAB PO SCH (09:43)
[2018-01-24] MEDS: BENAZEPRIL 20 MG TAB PO SCH ×2 (09:44→21:14)
--- NOTE | 2018-01-24 10:30 | NUR ---
PATIENT'S SON, HERBER CALLED AT [phone]. I LET HERBER KNOW THE PATIENT HAD BEEN RE ADMITTED EARLIER THIS MORNING AT [facility]. CALL WAS TRANSFERRED TO PATIENT.
--- NOTE | 2018-01-24 10:30 | NUR ---
RESTRAINTS REMOVED FROM PT. PT IS CALM AND COOPERATIVE. WILL CONTINUE TO MONITOR.
--- NOTE | 2018-01-24 11:43 | NUR ---
PT SLEEPING IN BED AT THIS TIME, NO S/S OF RESPIRATORY DISTRESS OR DISCOMFORT NOTED, CALL LIGHT IS WITHIN REACH, WILL CONTINUE TO MONITOR.
--- NOTE | 2018-01-24 12:00 | NUR ---
PT IS AWAKE LYING ON THE BED, MEDICINE GIVEN. NO SIGNS OF DISCOMFORT NOTED. VITAL SIGNS TAKEN AND RESULTS ARE STABLE. CALL LIGHT WITHIN REACH. WILL CONTINUE TO MONITOR.
--- NOTE | 2018-01-24 13:30 | NUR ---
PT IS SLEEPING, NO SIGNS OF DISCOMFORT, CALL LIGHT WITHIN REACH. WILL CONTINUE TO MONITOR.
--- NOTE | 2018-01-24 15:21 | NUR ---
PT IS AWAKE AND EATING WELL. NO ABNORMALITIES NOTED AT THIS TIME. CALL LIGHT WITHIN REACH. WILL CONTINUE TO OBSERVE.
[2018-01-24 16:00] VITALS: BP 138/76
--- NOTE | 2018-01-24 17:30 | NUR ---
PATIENT'S CAREGIVER (ANUPAMA PEREZ) IN PATIENT'S ROOM VISITING PATIENT. ANUPAMA LEFT HER PHONE NUMBER IN CASE SHE NEEDED TO BE REACHED FOR ANY REASON AT ANY TIME. PHONE NUMBER [phone]. ANUPAMA SAID SHE HAD BEEN IN THE HOSPITAL HERSELF SO HAD NOT BEEN ABLE TO COME IN AND SEE THE PATIENT.
--- NOTE | 2018-01-24 18:45 | NUR ---
PT IS SITTING ON THE BED, EATING INDEPENDENTLY. NO SIGNS OF DISTRESS NOTED. CALL LIGHT WITHIN REACH.
--- NOTE | 2018-01-24 19:20 | NUR ---
ENDORSED PT TO DIRECTOR EXPORT NURSE FOR CONTINUTY OF CARE. PT IS LYING COMFORTABLY ON THE BED. NO SIGNS OF DISTRESS NOTED.PT IS STABLE.
--- NOTE | 2018-01-24 19:21 | NUR ---
RECD. RESTING IN BED, AWAKE, A/OX2, RESPIRATION EVEN AND UNLABORED. IV OF NS AT 60 ML/HR INFUSING LEFT AC G20. NOTED BRUISES ON THE LEFT EYE, AND CHIN. ASSISTED TO REPOSITION IN BED. ADVISED TO ALTERNATELY TURN TO THE RIGHT AND LEFT. PLAN OF CARE DISCUSSED. NEEDS REINFORCEMENT.SAFETY MEASURES ENFORCED.DENIES PAIN 0/10.
--- NOTE | 2018-01-24 20:57 | NUR ---
Patient's Plan of Care was discussed and reviewed with PUNCHER AND FASTENER: ZAYDA HOWARD
--- NOTE | 2018-01-24 21:14 | NUR ---
DUE PO MEDICATIONS GIVEN, TOLERATED WELL.
[2018-01-24] MEDS: MIRTAZAPINE 15 MG TAB PO SCH (21:15)
[2018-01-24] MEDS: OLANZapine 5 MG TAB PO SCH (21:15)
--- NOTE | 2018-01-24 21:25 | NUR ---
ASSISTED TO USE BEDPAN, VOIDED 150 ML OF URINE. ASSISTED TO CLEANSE SELF.
--- NOTE | 2018-01-24 23:35 | NUR ---
ASSISTED OUT OF BED BY CLOTH FINISHING RANGE OPERATOR, GOES TO BR TO HAVE BM BUT JUST VOIDED.SAFETY MAINTAINED.
[2018-01-25] VITALS: BP_SYST 132; BP_SYST 156; BP_DIAS 66; BP_DIAS 72
--- NOTE | 2018-01-25 04:30 | NUR ---
STILL SLEEPING COMFORTABLY IN BED.
--- NOTE | 2018-01-25 06:29 | NUR ---
CONDITION REMAIN STABLE. WILL ENDORSE TO AM NURSE FOR CONTINUITY OF CARE.
--- NOTE | 2018-01-25 07:20 | NUR ---
RECEIVED REPORT FROM LLAMA FARMER NURSE. PATIENT LYING IN BED SLEEPING, AROUSABLE BY VOICE. NO DISTRESS NOTED. DENIES ANY PAIN. RESPIRATIONS EVEN, UNLABORED, ON ROOM AIR. AAOX1, CALM, COOPERATIVE, SKIN COLOR APPROPRIATE TO ETHNICITY, WARM TO TOUCH. SKIN INTACT, HOWEVER, LEFT ELBOW AND FACE CHIN BRUISING NOTED DUE TO A FALL. IV SITE INTACT, PATENT AND INFUSING IVF PER ORDERS. LUNGS CTA ON ALL LOBES. ABDOMEN SOFT, NON-DISTENDED. REVIEWED PLAN OF CARE WITH PATIENT. REINFORCEMENT NEEDED. SAFETY MEASURES IN PLACE, CALL LIGHT WITHIN REACH, FALL PREVENTIONS IN PLACE. WILL CONTINUE TO MONITOR.
[2018-01-25 07:38] LABS: HEMATOCRIT 38.5 % (36-48); HEMOGLOBIN 12.5 g/dL (12.0-16.0); MEAN CORPUSCULAR HEMOGLOBIN 28 pg (27-31); MEAN CORPUSCULAR HGB CONC 33 g/dL (33-37); MEAN CORPUSCULAR VOLUME 87.2 fL (80-94); PLATELET COUNT (AUTO) 240 K/uL (140-450); RED BLOOD CELL COUNT(AUTO) 4.42 MIL/uL (4.20-5.40); WHITE BLOOD COUNT (AUTO) 8.2 K/uL (4.8-10.8)
[2018-01-25 08:00] VITALS: BP 150/74
[2018-01-25 08:22] VITALS: BP 110/79
[2018-01-25 08:43] LABS: EOSINOPHILS % (MANUAL) 1 % (0-4); LYMPHOCYTES % (MANUAL) 18 % (20-46); MONOCYTES % (MANUAL) 9 % (5-12)
[2018-01-25] MEDS: CALCIUM CARBONATE 500 MG TAB PO SCH (09:36)
[2018-01-25] MEDS: CARBIDOPA/LEVODOPA 25/100 MG 1 TAB PO SCH ×3 (09:36→17:20)
[2018-01-25] MEDS: BENAZEPRIL 20 MG TAB PO SCH ×2 (09:36→20:30)
--- NOTE | 2018-01-25 09:38 | NUR ---
PATIENT SITTING IN BED COMFORTABLY. NO DISTRESS NOTED. DENIES ANY PAIN AT THIS TIME. SCHEDULED MEDICATIONS DUE GIVEN. SAFETY MEASURES IN PLACE, CALL LIGHT WITHIN REACH. WILL CONTINUE TO MONITOR.
--- NOTE | 2018-01-25 10:59 | NUR ---
PATIENT HAS BEEN SCREENED AND CATEGORIZED MODERATE NUTRITION RISK. PATIENT WILL BE SEEN WITHIN 3-5 DAYS OF ADMISSION. 01/26/18 - 01/28/[address]
--- NOTE | 2018-01-25 12:00 | NUR ---
I Meet with Patient and with caregiver at bedside to discuss patient's follow up care after discharge. Patient stated that she has been talking with her son and caregiver and have decided that she will be in agreement to go to a SNF to continue with her care after discharge from [facility].
--- NOTE | 2018-01-25 12:34 | NUR ---
PATIENT SITTING IN BED WITH LUNCH TRAY IN FRONT. NO DISTRESS NOTED. DENIES ANY PAIN. SCHEDULED MEDICATIONS DUE GIVEN. SAFETY MEASURES IN PLACE, CALL LIGHT WITHIN REACH. WILL CONTINUE TO MONITOR.
--- NOTE | 2018-01-25 13:46 | NUR ---
CM NOTE RECEIVED ORDER FOR HOME HEALTH AND FWW. PER JUAN SHERIDAN, SHE SPOKE WITH PATIENT'S SON AND HAS NO PREFERENCE FOR ANY SPECIFIC HOME HEALTH AGENCY. PER LISETTE RIVAS [facility] PH# [phone], THEY ARE ACCEPTING THE PATIENT AND THEY CAN SEND A NURSE/PT TO SEE PATIENT WHEN DISCHARGED. FAXED FWW ORDER TO [facility]. [phone] AND PER MARISSA PH# [phone] THEY HAVE A CONTRACT TO SUPPLY DME FOR MEDICARE PATIENTS.
--- NOTE | 2018-01-25 14:52 | NUR ---
CM NOTE FAXED SNF INQUIRY TO [facility] [phone] ATTN: [facility] # [phone]. PER FAITH THEY WILL REVIEW PATIENT'S PACKET AND WILL DECIDE IF THEY CAN TAKE PATIENT OR NOT. I GAVE FAITH THE NUMBER TO THE NURSING STATION WHERE PATIENT IS IN CASE THEY COME UP WITH A DECISION AT A LATER TIME TODAY. CHARGE NURSE DMITRY HANCOCK.
--- NOTE | 2018-01-25 14:54 | NUR ---
PATIENT AMBULATING WITH PHYSICAL THERAPIST AROUND [facility] HALLWAYS WITH A WALKER. WILL CONTINUE TO MONITOR.
[2018-01-25 16:00] VITALS: BP 127/77
--- NOTE | 2018-01-25 16:00 | NUR ---
PATIENT LYING IN BED COMFORTABLY TALKING WITH ROOMATE AND OTHER FAMILY. NOTIFIED FAMILY MEMBERS THAT SERVICE SPRINKLER HELPER WILL TALK TO SON REGARDING HOME HEALTH OR SNF D/C PLAN. PATIENT WILL NOT BE DISCHARGED TODAY. FAMILY MEMBERS VERBALIZED UNDERSTANDING. WILL CONTINUE TO MONITOR.
--- NOTE | 2018-01-25 16:37 | NUR ---
I call Patient's son Chauncey Norman at to speak about patient's MD recommendations for a discharge with follow up care with Home Health. Mr. Norman stated that he is not sure about what happen during patients previous discharge to SNF. Per son Patient was probably scare with transitions and act out causing her to be re-admitted at [facility]. I explained to Patient's son that patient is now recommended to D/C with home health care and clarify what the expectations of their services at home sg. Further more I let him know that it is only hours per week that home health will provide care for patient and that he will have to find a caregiver to coordinate and provide services for patient not to be home alone. Mr. Norman verbalized understanding and stated that he will would look for some assistance but he would prefer for patient to go to SNF and receive the care that she needs. I explained to Mr. Norman that [facility] Can attempt to look for a SNF that will accept for patient care but son will have to make sure that he is with patient during transition to make process easier. Mr. Norman agreed and stated that he will be here about 18:00 to speak to Patient again and discuss her plan for discharge. I thank Mr. norman for information and ended the call.
--- NOTE | 2018-01-25 17:01 | NUR ---
I attempted to contact Patient's son Mr. Norman to discuss change of order by [facility] Mr. Norman did not responded and these senior technical writer left him a MSG to contact me back as soon as possible.
--- NOTE | 2018-01-25 17:08 | NUR ---
I call [facility] and spoke to Lupillo at to find out patient's acceptance status to SNF. Per Lupillo they are going to review patient's clinicals and will possibly have a bed and accept patient until tomorrow 01/26/18. Per Lupillo and SNF staff it will be better to coordinate and plan for patient to discharge on 01/27/28. therefore Patient's son and caregiver can better plan to transport patient to SNF right after her discharge form [facility]. I thank Lupillo for the information and I ended the call.
--- NOTE | 2018-01-25 17:22 | NUR ---
PATIENT LYING IN BED COMFORTABLY. NO DISTRESS NOTED. DENIES ANY PAIN AT THIS TIME. SCHEDULED MEDICATIONS DUE GIVEN. WILL CONTINUE TO MONITOR.
--- NOTE | 2018-01-25 17:25 | NUR ---
These health science writer continue to attempt to have contact with patient's son Chauncey oNrman at (about 4 attempted calls) to provide him with information and updates about Patient's status and plan for discharge to SNF on 01/26/18. Mrs. Norman did not answer several calls already made to him 4x. These health science writer is not able to live any Voicemail MGS at this time due to full voice mail.
--- NOTE | 2018-01-25 18:00 | NUR ---
I met with Patient and Son Chauncey Norman at bedside to discuss Patient's status and discharge tomorrow to SNF ([facility]). These typewriter operator automatic explained to patient and son that there is a possible SNF acceptance for tomorrow 01/26/18; however patient's son Chauncey Norman will have to hop picker patient at discharge and transport patient to SNF. Patient and Son agreed and he stated and confirmed that he will take patient to the facility tomorrow about 18:00 after he gets off work.
--- NOTE | 2018-01-25 19:27 | NUR ---
GAVE REPORT TO UNIT EDUCATOR NURSE FOR CONTINUITY OF CARE. PATIENT IN STABLE CONDITION.
--- NOTE | 2018-01-25 19:30 | NUR ---
RECEIVED PT IN STABLE CONDITION FROM AM NURSE. AWAKE,ALERT ABUT CONFUSED. MED SURG PT. WITH NO S/S OF ANY DISCOMFORT NOR PAIN NOTED. BEDREST. STILL WITH BRUISED ON LT EYE AND CHIN. HAS HL ON THE LT UPPER ARM #22, CLEAR AND PATENT. SIDE RAILS UP X2. WITH BED ALARM ON . FREQUENT ROUNDS NEEDED. WILL CONTINUE TO MONITOR.
[2018-01-25 20:27] VITALS: BP 163/88
[2018-01-25] MEDS: OLANZapine 5 MG TAB PO SCH (20:31)
[2018-01-25] MEDS: MIRTAZAPINE 15 MG TAB PO SCH (20:31)
--- NOTE | 2018-01-25 21:30 | NUR ---
PT STILL AWAKE . USED BEDPAN AND VOIDED WELL.
--- NOTE | 2018-01-25 22:37 | NUR ---
CALLED LAB FOR PENDING BMP RESULT ON THE BLOOD DRAWN TODAY . LAB SAID IT WAS SEND OUT TO [facility] AND NO RESULT OF THIS TIME YET.
[2018-01-26 00:25] VITALS: BP 146/74
--- NOTE | 2018-01-26 01:00 | NUR ---
PT IS ASLEEP. NO S/S OF ANY DISCOMFORT NOR PAIN NOTED. WILL CONTINUE TO MONITOR.
--- NOTE | 2018-01-26 02:20 | NUR ---
PT AWAKE. USED BEDPAN AND VOIDED WELL. CLEANED AND KEPT DRY.
--- NOTE | 2018-01-26 05:00 | NUR ---
PT HAS BEEN STABLE DURING THE NIGHT. NO S/S OF ANY DISCOMFORT NOTED.
[2018-01-26 06:19] LABS: T4 (THYROXINE) 8.6 ug/dL (4.5-12.0)
--- NOTE | 2018-01-26 07:08 | NUR ---
PT IS SLEEPING IN BED. ENDORSED PT IN STABLE CONDITION TO AM NURSE.
--- NOTE | 2018-01-26 07:09 | NUR ---
RECEIVED REPORT KNITTER MECHANIC.PATIENT LYING IN THE BED NO DISTRESS.AAOX2 SKIN INTACT,FACE CHIN AND EYES AND LT ELBOW BRUISING DUE TO FALL BEFORE HOSPITALIZATION.SAFETY MEASURE IN PLACE,IV SITE INTACT AND PATENT.ON SALINE LOCK,RESPIRATION EVEN UNLABORED ON ROOM AIR.WILL CONTINUE TO MONITORING.
[2018-01-26 08:00] VITALS: BP 112/81
[2018-01-26] MEDS: CARBIDOPA/LEVODOPA 25/100 MG 1 TAB PO SCH ×3 (08:33→16:59)
[2018-01-26] MEDS: BENAZEPRIL 20 MG TAB PO SCH (08:34)
[2018-01-26] MEDS: CALCIUM CARBONATE 500 MG TAB PO SCH (08:34)
--- NOTE | 2018-01-26 08:40 | NUR ---
PATIENT LYING IN BED SLEEPING, AROUSABLE BY VOICE. NO DISTRESS NOTED. DENIES ANY PAIN. ASSISTED PATIENT WITH BEDPAN AND CLEANUP. SCHEDULED MEDICATIONS DUE GIVEN. SAFETY MEASURES IN PLACE, CALL LIGHT WITHIN REACH. WILL CONTINUE TO MONITOR.
--- NOTE | 2018-01-26 10:07 | NUR ---
CM NOTE PER NAVDEEP OF [facility] PH# [phone], PATIENT CAN GO TO RM [address] Pat COOK WHEN READY FOR DISCHARGE, NUMBER TO CALL FOR REPORT PH# [phone]. PER JUAN SHERIDAN'S NOTES, PATIENT WILL BE PICKED UP BY SON TO GO TO [facility]. MOHIT ST AWARE. SPOKE WITH MARIZOL OF [facility] PH# [phone] TO CANCEL . Addendum: 01/26/18 at 1407 by Jen Sher PER MARISSA OF [facility] THEY CANNOT PROVIDE FWW IF PATIENT IS GOING TO SNF.
--- NOTE | 2018-01-26 10:15 | NUR ---
PATIENT LYING IN BED SLEEPING, AROUSABLE BY VOICE. NO DISTRESS NOTED. DENIES ANY PAIN. CONDITION UNCHANGED. SAFETY MEASURES IN PLACE, CALL LIGHT WITHIN REACH. WILL CONTINUE TO MONITOR.
--- NOTE | 2018-01-26 11:30 | NUR ---
ASSISTED PATIENT ON TO BEDPAN AND WITH CLEANUP AFTERWARDS. WILL CONTINUE TO MONITOR.
--- NOTE | 2018-01-26 12:45 | NUR ---
Wellhead Pumper Notes: I contact patient's son Chauncey Norman to inform him that patient has been accepted to [facility] and to confirm that patient will be discharge today. I also discuss with Mr. Norman plan for patient's discharge today consist of him coming to product picker Patient after he is off from work today at about 18:00 and [facility] right after she is discharge from [facility]. Mr. Norman Agreed with the plan and confirmed that he will be the one taking patient to SNF who will be expecting patient to arrive between 18:30 to 19:30 with Mr. Norman to make her transition to the facility easier. During conversation I informed to Mr. Norman that case manger has also contacted Insurance and special equipment [employer] to request and order a front wheel walker for patient as it was MD recommendations at discharge. I let him Know that company will call him to pay the co-pay of about $25.00 and scheduled wheel chair delivery. Mr. Norman agreed to co-pay and to maintain in contact with [employer] for equipment to be delivered. He thank me for my assistance and I ended the call.
--- NOTE | 2018-01-26 13:00 | NUR ---
PATIENT SITTING IN BED COMFORTABLY. A LITTLE CONFUSED. NO DISTRESS NOTED. DENIES ANY PAIN. SCHEDULED MEDICATIONS DUE GIVEN. SAFETY MEASURES IN PLACE, CALL LIGHT WITHIN REACH. WILL CONTINUE TO MONITOR.
--- NOTE | 2018-01-26 14:00 | NUR ---
CALLED [facility] AT [phone] AND GAVE REPORT TO JELLY ESTRADA REGARDING PATIENT TRANSFER LATER TODAY. ANSWERED ALL OF NATALIE'S QUESTIONS. REPORTED TO NATALIE THAT PATIENT'S SON WAS GOING TO PICK PATIENT UP FROM [facility] AND TAKE PATIENT HIMSELF TO THE MEDICAL CENTER AROUND [phone], AFTER SON'S WORK. NATALIE VERBALIZED UNDERSTANDING. WILL CONTINUE TO MONITOR.
[2018-01-26 15:16] LABS: ANION GAP 11.3 (8-16); CARBON DIOXIDE 32.6 mmol/L (21-32); POTASSIUM 3.9 mmol/L (3.5-5.1)
[2018-01-26 15:17] LABS: CREATININE 1.2 mg/dL (0.6-1.3)
--- NOTE | 2018-01-26 15:30 | NUR ---
PATIENT SITTING BED WATCHING TV. NO DISTRESS NOTED. DENIES ANY PAIN. CONDITION UNCHANGED. ASSISTED PATIENT WITH CLEANING HANDS. WILL CONTINUE TO MONITOR.
[2018-01-26 16:00] VITALS: BP 137/79
--- NOTE | 2018-01-26 16:30 | NUR ---
ASSISTED PATIENT WITH BEDPAN AND CLEANUP. NO DISTRESS NOTED. DENIES ANY PAIN. CONDITION UNCHANGED. SAFETY MEASURES IN PLACE, CALL LIGHT WITHIN REACH. WILL CONTINUE TO MONITOR.
--- NOTE | 2018-01-26 17:07 | NUR ---
PHYSICAL THERAPY CO-SIGN The Physical Therapy Progress Notes documented by Digital Production Operator have been reviewed. Reviewed/Co-Signed by: Britney Cervantes PT Documentation Done by:[facility] LPN POC REVIEWED W/ CLINIC LPN; WILL BENEFIT W/ P.T. AFTER ACUTE STAY.
--- NOTE | 2018-01-26 18:00 | NUR ---
PATIENT'S SON AT BEDSIDE READY TO TAKE PATIENT TO [facility]. PROVIDED DISCHARGE INSTRUCTIONS TO SON/PATIENT REGARDING FOLLOW-UP VISIT WITH MD, NEW/CHANGED MEDICATION REGIMEN, DIET REGIMEN, AND DEMENTIA DISEASE MANAGEMENT. INSTRUCTIONS PROVIDED IN LANGUAGE OF BANGLADESHI. SON ABLE TO TRANSLATE TO PATIENT. PROVIDED INSTRUCTIONS TO SON REGARDING FOLLOW-UP AND NEEDING WHEELCHAIR UPON TRANSFER TO [facility] FOR SAFETY AND NEED TO BE INVOLVED WITH PATIENT FOR PATIENT TO GET USED TO [facility]. SON VERBALIZED COMPLETE UNDERSTANDING. IV SITE REMOVED WITH MINIMAL BLOOD AND LUMEN COMPLETELY INTACT. ID BANDS REMOVED. ASSISTED PATIENT IN PUTTING ON CLOTHES. ALL BELONGINGS WITH PATIENT. COPY OF PATIENT'S CHART WITH SON AND DISCHARGE INSTRUCTIONS WITH SON. GETTING WHEELCHAIR TO DISCHARGE PATIENT. WILL CONTINUE TO MONITOR.
--- NOTE | 2018-01-26 18:35 | NUR ---
PATIENT ALL DRESSED UP AND READY TO GO TO [facility]. ESCORTED PATIENT DOWN TO LOBBY VIA WHEELCHAIR. ASSISTED PATIENT FROM WHEELCHAIR TO SON'S CAR VIA AMBULATION. PATIENT SAFETY TRANSFERRED FROM WHEELCHAIR TO SON'S CAR. PATIENT DISCHARGED TO [facility] AT THIS TIME VIA PRIVATE VEHICLE IN SON'S CAR IN STABLE CONDITION.
== END 2018-01-26 18:35 | DRG 70 ==
LOC: MED 00:42 → MTU 05:36 → OBSVTOIN 01-25 17:30
PROVIDERS: ADMIT Family Medicine Sports Medicine; ATTEND Family Medicine Sports Medicine
DX: G93.41 Metabolic encephalopathy (principal); N17.0 Acute kidney failure with tubular necrosis; D68.59 Other primary thrombophilia; E11.69 Type 2 diabetes mellitus with other specified complication; F05 Delirium due to known physiological condition; F23 Brief psychotic disorder; G20 Parkinson's disease; S00.83XA Contusion of other part of head, initial encounter; W18.39XA Other fall on same level, initial encounter; R45.1 Restlessness and agitation; I10 Essential (primary) hypertension; F43.9 Reaction to severe stress, unspecified; E78.00 Pure hypercholesterolemia, unspecified; Y93.89 Activity, other specified; Y92.89 Other specified places as the place of occurrence of the external cause; Y99.8 Other external cause status
CPT/HCPCS: 99285; G0378; 36415; 70450; 71045; 80048; 80053; 80305; 81001; 82150; 83036; 83690; 83735; 83880; 84100; 84436; 84439; 84443; 84479; 84484; 85025; 85610; 85730; 87081; 93005; 97110; 97140; 97530; C1758; G0482; J7030; J8597

== ENCOUNTER 2018-04-18 15:15 | Emergency (ER) | payer OTHER ==
[~2018-04-18] VITALS: Ht 160 cm; Wt 62.6 kg
--- NOTE | 2018-04-18 15:19 | NUR ---
PATIENT BIBA TO BED 5 AT THIS TIME.
[2018-04-18 15:20] VITALS: BP 163/71
--- NOTE | 2018-04-18 15:20 | NUR ---
gave report to Flynn ST
--- NOTE | 2018-04-18 15:22 | NUR ---
62/F biba with c/o DIZZINESS AND FALL AT HOME x today. DENIES ALOC; ABRASION TO L FRONTAL AREA. hx :SEIZURE, PSYCHOSIS, PARKISON, diabetes, hypertension & BLIND RIGHT EYE. AAOX4 WITH EVEN AND STEADY GAIT; LUNGS CLEAR BL; HR EVEN AND REGULAR; PT DENIES ANY FEVER, CP, SOB, OR COUGH AT THIS TIME; PATIENT STATES PAIN OF 8/10 AT THIS TIME. PATIENT POSITIONED FOR COMFORT; HOB ELEVATED; BEDRAILS UP X2; BED DOWN. ER MD MADE AWARE OF PT STATUS.
--- NOTE | 2018-04-18 15:22 | NUR ---
Note undone in EDM - 04/18/18 at 1615 by [email or web address] 62/F biba with c/o DIZZINESS AND FALL AT HOME x today. DENIES ALOC; ABRASION TO L FRONTAL AREA. hx : diabetes, hypertension, vertigo & BLIND RIGHT EYE. AAOX4 WITH EVEN AND STEADY GAIT; LUNGS CLEAR BL; HR EVEN AND REGULAR; PT DENIES ANY FEVER, CP, SOB, OR COUGH AT THIS TIME; PATIENT STATES PAIN OF 8/10 AT THIS TIME. PATIENT POSITIONED FOR COMFORT; HOB ELEVATED; BEDRAILS UP X2; BED DOWN. ER MD MADE AWARE OF PT STATUS.
--- NOTE | 2018-04-18 16:00 | NUR ---
Patient being evaluated by DR HUNTER at bedside.
--- NOTE | 2018-04-18 16:20 | NUR ---
LAB AT BEDSIDE
--- NOTE | 2018-04-18 16:27 | NUR ---
PT TAKEN TO X RAY & CT VIA GURIRIS ACCOMPANIED BY WAYLON GORDILLO.
[2018-04-18 16:36] LABS: BASOPHILS # (AUTO) 0.1 K/uL (0.00-0.22); BASOPHILS % (AUTO) 0.9 % (0.0-2.0); EOSINOPHILS % (AUTO) 0.1 % (0.0-4.0); HEMATOCRIT 38.6 % (36-48); LYMPHOCYTES # (AUTO) 0.6 K/uL (2.5-16.5); LYMPHOCYTES % (AUTO) 6.1 % (20.5-51.1); MEAN CORPUSCULAR HEMOGLOBIN 28 pg (27-31); MEAN CORPUSCULAR HGB CONC 34 g/dL (33-37); MEAN CORPUSCULAR VOLUME 82.6 fL (80-94); MONOCYTES # (AUTO) 0.4 K/uL (0.8-1.0); MONOCYTES % (AUTO) 4.1 % (1.7-9.3); PLATELET COUNT (AUTO) 230 K/uL (140-450); RED BLOOD CELL COUNT(AUTO) 4.68 MIL/uL (4.20-5.40); RED CELL DISTRIBUTION WIDTH 13.6 % (11.6-13.7); WHITE BLOOD COUNT (AUTO) 10.2 K/uL (4.8-10.8)
[2018-04-18 16:45] LABS: ANION GAP 12.2 (8-16); CARBON DIOXIDE 29.4 mmol/L (21-32); CREATININE 1.1 mg/dL (0.6-1.3); POTASSIUM 3.6 mmol/L (3.5-5.1)
[2018-04-18 16:51] LABS: ALBUMIN 3.9 g/dL (3.4-5.0); MAGNESIUM 1.8 mg/dL (1.8-2.4); TOTAL BILIRUBIN 0.5 mg/dL (0.0-1.0)
--- NOTE | 2018-04-18 16:55 | NUR ---
BACK FROM X RAY & CT.
[2018-04-18 17:00] LABS: NEUTROPHILS % (AUTO) 88.8 % (42.2-75.2)
--- NOTE | 2018-04-18 17:01 | NUR ---
EKG AT BEDSIDE.
[2018-04-18 17:18] LABS: APPEARANCE,URINE CLEAR (CLEAR); BILIRUBIN,URINE NEGATIVE (NEGATIVE); BLOOD, URINE NEGATIVE (NEGATIVE); COLOR,URINE YELLOW (YELLOW); LEUKOCYTE ESTERASE ,URINE NEGATIVE (NEGATIVE); NITRITE, URINE NEGATIVE (NEGATIVE); UGLUCOSE NEGATIVE (NEGATIVE)
[2018-04-18 17:29] LABS: RBC,URINE 0-5 (RARE) /HPF (0-5); WBC,URINE 6-15 (FEW) /HPF (0-5)
[2018-04-18 17:59] VITALS: BP 128/79
--- NOTE | 2018-04-18 17:59 | NUR ---
Note usman in EDM - 04/18/18 at 1800 by MED1 Patient discharged with v/s stable. Written and verbal after care instructions given and explained. Patient verbalized understanding. Wheel Chair Assisted with to car. All questions addressed prior to discharge. Advised to follow up with PMD.
== END 2018-04-18 17:59 | disposition home or self-care (01) ==
LOC: MED 15:15
DX: S00.83XA Contusion of other part of head, initial encounter (principal); I10 Essential (primary) hypertension; E11.9 Type 2 diabetes mellitus without complications; E66.9 Obesity, unspecified; G31.83 Neurocognitive disorder with Lewy bodies; F02.80 Dementia in other diseases classified elsewhere, unspecified severity, without behavioral disturbance, psychotic disturbance, mood disturbance, and anxiety; Z79.84 Long term (current) use of oral hypoglycemic drugs; Z79.899 Other long term (current) drug therapy; W19.XXXA Unspecified fall, initial encounter; Y93.89 Activity, other specified; Y92.89 Other specified places as the place of occurrence of the external cause; Y99.8 Other external cause status
CPT/HCPCS: 36415; 70450; 71045; 80053; 81001; 82550; 83735; 84484; 85025; 87086; 93005; 99285

== ENCOUNTER 2018-06-14 16:40 | Inpatient (IN) | payer OTHER ==
[~2018-06-14] VITALS: Ht 154.9 cm; Wt 57.6 kg
[~2018-06-14 16:40] MED LIST changes: -BENA20TA5 PO; +BENA20TA88 PO
--- NOTE | 2018-06-14 16:41 | NUR ---
PT BIBA BLS TO BED 11
[2018-06-14 16:45] VITALS: BP 128/60
--- NOTE | 2018-06-14 16:45 | NUR ---
62F BIBA SENT FROM [facility]. [facility] WITH C/O INCREASED PSYCHOSIS AND RIGHT EYE REDNESS AND IRRITATION. PATIENT STATED SHE CAN NOT SEE. PATIENT ANXIOUS. REPEATED PHRASES. PT IS AT NEURO BASELINE PER MEDIA OPERATOR REPORT. PT IS AO BUT CONFUSED. CLEAR SPEECH. RR ARE EVEN AND UNLABORED. NAD. PT CHANGED INTO GOWN. PT TO CARDIAC, BP, PULSE, AND PULSE OX MONITORING. PT POSITIONED TO COMFORT. ALL NEEDS MET AT THIS TIME. WILL CONTINUE OT MONITOR.
[2018-06-14] MEDS ORDERED: LORazepam 2 MG/ML VIAL IVP ONE (17:15)
[2018-06-14] MEDS ORDERED: NACL 0.9% 1,000 ML IV ONE (17:15)
--- NOTE | 2018-06-14 17:28 | NUR ---
PT LESS AGITATED. VSS. PT POSITIONED TO COMFORT. NAD. WILL CONTINUE TO MONITOR.
[2018-06-14 17:47] LABS: BASOPHILS % (AUTO) 0.4 % (0.0-2.0); EOSINOPHILS # (AUTO) 0.1 K/uL (0-0.4); EOSINOPHILS % (AUTO) 0.7 % (0.0-4.0); HEMATOCRIT 38.9 % (36-48); HEMOGLOBIN 12.7 g/dL (12.0-16.0); LYMPHOCYTES # (AUTO) 1.8 K/uL (2.5-16.5); LYMPHOCYTES % (AUTO) 19.3 % (20.5-51.1); MEAN CORPUSCULAR HEMOGLOBIN 28 pg (27-31); MEAN CORPUSCULAR HGB CONC 33 g/dL (33-37); MEAN CORPUSCULAR VOLUME 86.7 fL (80-94); MONOCYTES # (AUTO) 0.6 K/uL (0.8-1.0); MONOCYTES % (AUTO) 6.1 % (1.7-9.3); NEUTROPHILS # (AUTO) 6.7 K/uL (1.8-7.7); NEUTROPHILS % (AUTO) 73.5 % (42.2-75.2); PLATELET COUNT (AUTO) 274 K/uL (140-450); RED BLOOD CELL COUNT(AUTO) 4.49 MIL/uL (4.20-5.40); RED CELL DISTRIBUTION WIDTH 13.9 % (11.6-13.7); WHITE BLOOD COUNT (AUTO) 9.1 K/uL (4.8-10.8)
[2018-06-14] MEDS ORDERED: HYDROcodone/APAP 7.5/325 MG 1 TAB PO PRN (17:50)
[2018-06-14] MEDS ORDERED: DOCUSATE SODIUM 100 MG GELCAP PO PRN (17:50)
[2018-06-14] MEDS ORDERED: ONDANSETRON 4 MG/2 ML VIAL IM/IVP PRN (17:50)
[2018-06-14] MEDS ORDERED: ACETAMINOPHEN 325 MG TAB PO PRN (17:50)
[2018-06-14 18:13] LABS: ANION GAP 12.2 (8-16); CARBON DIOXIDE 29.3 mmol/L (21-32); CREATININE 1.3 mg/dL (0.6-1.3); POTASSIUM 4.5 mmol/L (3.5-5.1); PROTHROMBIN TIME 9.1 secs (10.8-13.4)
[2018-06-14 18:20] LABS: ALBUMIN 4.2 g/dL (3.4-5.0); TOTAL BILIRUBIN 0.3 mg/dL (0.0-1.0)
--- NOTE | 2018-06-14 18:29 | NUR ---
PT TAKEN TO FLOOR BY ALMA ROSA BOWERS AND EMT JUAN A
--- NOTE | 2018-06-14 18:30 | NUR ---
Patient will be admitted to care of [facility]. Admited to Tele. Will go to room 122A. Belongings list completed. Bedside report to Obed Culver RN.
[2018-06-14 18:42] LABS: FREE T4 (FREE THYROXINE) 0.89 ng/dL (0.76-1.46); MAGNESIUM 2.7 mg/dL (1.8-2.4); PHOSPHORUS 4.4 mg/dL (2.5-4.9); THYROID STIMULATING HORMONE 1.5 uIU/mL (0.34-3.74)
[2018-06-14] MEDS ORDERED: BENA20TA88 PO (18:50)
[2018-06-14] MEDS ORDERED: SENN-72 PO (18:50)
[2018-06-14 18:54] VITALS: BP 128/72
[2018-06-14] MEDS ORDERED: MECLIZINE 25 MG TAB PO PRN (18:55)
--- NOTE | 2018-06-14 19:00 | NUR ---
RECEIVED PT FROM CHARGE NURSE DMITRY-ALMA ROSA. PT AOX1- SPEAKS KHMER HOWEVER DIFFICULT TO UNDERSTAND AND REPETITIVE. ON ROOM AIR, IV SITE RIGHT AC 20G. AMBULATORY HOWEVER WITH ASSISTANCE- PT CONTINUES TO REPEAT DIZZINESS. PT DISCUSSED PLAN OF CARE HOWEVER PT CONTINUES TO REPEAT SOMETHING I CANNOT UNDERSTAND TO MAKE SENSE IN KHMER. HISTOLOGY AIDE KIMMY IN ROOM AND ALSO UNABLE TO COMPLETELY UNDERSTAND WHAT SHE CONTINUES TO REPEAT. NO S/S OF RESPIRATORY DISTRESS OR DISCOMFORT NOTED AT THIS TIME. BED IN LOWEST POSITION, BOTH SIDE RAILS UP, BED BREAKS ON. BED SIDE TABLE AND CALL LIGHT ARE WITHIN REACH. WILL CONTINUE TO MONITOR.
[2018-06-14] MEDS ORDERED: DEXTROSE 50% 50 ML SYR IVP PRN (19:50)
[2018-06-14] MEDS ORDERED: INSULIN LISPRO SLIDING SCALE 100 UNITS/ML VIAL SUBQ PRN (19:50)
[2018-06-14 20:00] VITALS: BP 134/84
--- NOTE | 2018-06-14 20:00 | NUR ---
VITAL SIGNS TAKEN AND TOLERATED WELL. NO S/S OF RESPIRATORY DISTRESS OR DISCOMFORT NOTED AT THIS TIME. WILL CONTINUE TO MONITOR.
[2018-06-14] MEDS ORDERED: CLINDAMYCIN 600 MG/4 ML VIAL ONE (20:20)
--- NOTE | 2018-06-14 20:30 | NUR ---
BLOOD GLUCOSE 144- NO INSULIN COVERAGE NEEDED.
[2018-06-14] MEDS: BLOOD GLUCOSE MONITORING 1 DEV DEV FS SCH (20:38)
[2018-06-14] MEDS: NACL 0.9% 1,000 ML IV SCH (20:39)
[2018-06-14] MEDS: SENNA 8.6 MG TAB PO SCH (20:39)
[2018-06-14] MEDS: BENAZEPRIL 20 MG TAB PO SCH (20:41)
[2018-06-14] MEDS: OLANZapine 5 MG TAB PO SCH (20:43)
[2018-06-14] MEDS: MIRTAZAPINE 15 MG TAB PO SCH (20:43)
[2018-06-14] MEDS: CLINDAMYCIN 300 MG in DEXTROSE 5% 50 ML IV SCH (20:44)
--- NOTE | 2018-06-14 20:45 | NUR ---
SCHEDULED MEDICATION GIVEN AND TOLERATED WELL. NO S/S OF RESPIRATORY DISTRESS OR DISCOMFORT NOTED AT THIS TIME. WILL CONTINUE TO MONITOR.
--- NOTE | 2018-06-14 23:00 | NUR ---
PT RESTING IN BED WATCHING TV. NO S/S OF RESPIRATORY DISTRESS OR DISCOMFORT NOTED AT THIS TIME. WILL CONTINUE TO MONITOR.
[2018-06-15] VITALS: BP 106/70
--- NOTE | 2018-06-15 | NUR ---
VITAL SIGNS TAKEN AND TOLERATED WELL. NO S/S OF RESPIRATORY DISTRESS OR DISCOMFORT NOTED AT THIS TIME. WILL CONTINUE TO MONITOR.
--- NOTE | 2018-06-15 02:00 | NUR ---
PT SLEEPING IN BED. NO S/S OF RESPIRATORY DISTRESS OR DISCOMFORT NOTED AT THIS TIME. WILL CONTINUE TO MONITOR.
[2018-06-15] MEDS: NACL 0.9% 1,000 ML IV SCH ×3 (03:49→23:49)
--- NOTE | 2018-06-15 04:00 | NUR ---
PT SLEEPING AT THIS TIME. NO S/S OF RESPIRATORY DISTRESS OR DISCOMFORT NOTED AT THIS TIME. WILL CONTINUE TO MONITOR.
[2018-06-15] MEDS: CLINDAMYCIN 300 MG in DEXTROSE 5% 50 ML IV SCH ×3 (05:17→20:39)
[2018-06-15] MEDS ORDERED: CLINDAMYCIN 600 MG/4 ML VIAL ONE (05:17)
--- NOTE | 2018-06-15 05:20 | NUR ---
SCHEDULED MEDICATION CLEOCIN GIVEN AND TOLERATED WELL. PT CONTINUES TO SLEEP. NO S/S OF RESPIRATORY DISTRESS OR DISCOMFORT NOTED AT THIS TIME. WILL CONTINUE TO MONITOR.
[2018-06-15] MEDS: BLOOD GLUCOSE MONITORING 1 DEV DEV FS SCH ×4 (06:25→20:39)
--- NOTE | 2018-06-15 06:26 | NUR ---
BLOOD GLUCOSE 96- NO INSULIN COVERAGE NEEDED.
[2018-06-15 06:42] LABS: BASOPHILS % (AUTO) 0.6 % (0.0-2.0); EOSINOPHILS # (AUTO) 0.2 K/uL (0-0.4); EOSINOPHILS % (AUTO) 3.1 % (0.0-4.0); HEMATOCRIT 35.3 % (36-48); HEMOGLOBIN 11.5 g/dL (12.0-16.0); LYMPHOCYTES % (AUTO) 31.4 % (20.5-51.1); MEAN CORPUSCULAR HEMOGLOBIN 28 pg (27-31); MEAN CORPUSCULAR HGB CONC 33 g/dL (33-37); MEAN CORPUSCULAR VOLUME 86.8 fL (80-94); MONOCYTES # (AUTO) 0.5 K/uL (0.8-1.0); MONOCYTES % (AUTO) 7.2 % (1.7-9.3); NEUTROPHILS # (AUTO) 3.6 K/uL (1.8-7.7); NEUTROPHILS % (AUTO) 57.7 % (42.2-75.2); PLATELET COUNT (AUTO) 235 K/uL (140-450); RED BLOOD CELL COUNT(AUTO) 4.06 MIL/uL (4.20-5.40); RED CELL DISTRIBUTION WIDTH 14.1 % (11.6-13.7); WHITE BLOOD COUNT (AUTO) 6.3 K/uL (4.8-10.8)
[2018-06-15 06:57] LABS: ANION GAP 8.5 (8-16); CARBON DIOXIDE 29.3 mmol/L (21-32); CREATININE 1.2 mg/dL (0.6-1.3); POTASSIUM 4.8 mmol/L (3.5-5.1)
[2018-06-15 06:58] LABS: MAGNESIUM 2.4 mg/dL (1.8-2.4); PHOSPHORUS 4.4 mg/dL (2.5-4.9)
--- NOTE | 2018-06-15 07:25 | NUR ---
ENDORSED PT CARE TO DAY SHIFT NURSE NATALIYA FOR CONTINUITY OF CARE.
--- NOTE | 2018-06-15 07:30 | NUR ---
RECEIVED REPORT FROM TOOLROOM HELPER NURSE. PT IS RESTING IN BED, AAOX2, FORGETFUL, PT AMBULATES WITH ASSIST, PT HAS IV ON HER RIGHT AC, PATENT, INTACT, FLUSHING WELL, THERE IS REDNESS NOTED TO THE RIGHT EYE, NO DRAINAGE OR BLEEDING NOTED, NO S/S OF RESPIRATORY DISTRESS OR DISCOMFORT NOTED, DISCUSSED PLAN OF CARE WITH PT, PT REINFORCEMENT NEEDED, SAFETY/FALL/SEIZURE PRECAUTIONS ARE IN PLACE, CALL LIGHT WITHIN REACH, WILL CONTINUE TO MONITOR.
[2018-06-15 08:00] VITALS: BP 130/71
[2018-06-15] MEDS ORDERED: LEVODOPA PO SCH (08:00)
[2018-06-15] MEDS ORDERED: CARBIDOPA PO SCH (08:00)
[2018-06-15] MEDS: LACTOBACILLUS RHAMNOSUS GG 1 EACH CAP PO SCH ×3 (08:08→17:28)
[2018-06-15] MEDS: BENAZEPRIL 20 MG TAB PO SCH ×2 (08:09→20:35)
[2018-06-15] MEDS: metFORMIN 500 MG TAB PO SCH (08:09)
[2018-06-15] MEDS: CARBIDOPA/LEVODOPA 25/100 MG 1 TAB PO SCH ×3 (08:09→17:28)
[2018-06-15] MEDS: SENNA 8.6 MG TAB PO SCH ×2 (08:09→20:36)
[2018-06-15] MEDS: CALCIUM CARBONATE 500 MG TAB PO SCH (08:09)
[2018-06-15 08:44] LABS: T4 (THYROXINE) 5.6 ug/dL (4.5-12.0)
--- NOTE | 2018-06-15 08:50 | NUR ---
PATIENT HAS BEEN SCREENED AND CATEGORIZED MODERATE NUTRITION RISK. PATIENT WILL BE SEEN WITHIN 3-5 DAYS OF ADMISSION. 05/16/18 05/19/[address]
[2018-06-15 09:08] LABS: CHOL/HDL RATIO 2.4 (1-4.5)
--- NOTE | 2018-06-15 12:28 | NUR ---
PT IS SLEEPING IN BED AT THIS TIME, NO S/S OF DISTRESS NOTED, CALL LIGHT IS WITHIN REACH.
[2018-06-15 16:00] VITALS: BP 139/64
--- NOTE | 2018-06-15 16:04 | NUR ---
Computer Typesetter Keyliner Note: Per Emily from [facility] , patient is on a 7 day bed hold and is one of their long-term patients. Emily stated patient does not have an existing Advance Directive and her son Chauncey Norman is her healthcare decision maker. Addendum: 06/15/18 at 7334 by Shara TRINH I called patient's son Chauncey Norman to ask him if he would like patient to return [facility] once MD determines patient is medically stable to return there, no answer, left message. Addendum: 06/15/18 at 4526 by Shara TRINH I received a call from patient's son Chauncey Norman , per Chauncey, he would like patient to return to [facility] upon discharge.
--- NOTE | 2018-06-15 19:20 | NUR ---
ENDORSED PT TO PRECINCT COMMANDING OFFICER NURSE FOR CONTINUITY OF CARE. PT STABLE AT THIS TIME.
--- NOTE | 2018-06-15 19:21 | NUR ---
RECEIVED REPORT AT BEDSIDE FOR CONTINUITY OF CARE. PT AAOX1. PT HAS PARKINSONS AND HX PSYCHOSIS. PT ALSO REPEATS THINGS MANY TIMES. PT ON SEIZURE PRECAUTION. IV NOTED RAC 20G NS 100ML/HR. NO SOB NO S/S OF DISTRESS ON RA. SKIN INTACT. BED LOWERED BED ALARM PLACED. CALL LIGHT WITHIN REACH WILL CONTINUE TO MONITOR.
[2018-06-15] MEDS: MIRTAZAPINE 15 MG TAB PO SCH (20:35)
[2018-06-15] MEDS: OLANZapine 5 MG TAB PO SCH (20:38)
[2018-06-16] VITALS: BP 124/75
[2018-06-16] MEDS: CLINDAMYCIN 300 MG in DEXTROSE 5% 50 ML IV SCH ×3 (05:31→21:20)
[2018-06-16] MEDS: BLOOD GLUCOSE MONITORING 1 DEV DEV FS SCH ×4 (05:55→21:27)
--- NOTE | 2018-06-16 05:55 | NUR ---
PT B. PT EDUCATED ON LOW BLOOD SUGAR AND I ADVISE HER TO DRINK JUICE. PT REFUSED. OFFERED MILK, PT REFUSED. OFFERED GRAM CRACKERS AND PT IS EATING. WILL RE DO BG.
--- NOTE | 2018-06-16 06:56 | NUR ---
PT NEW BG IS 135. WILL ENDORSE TO DAYSHIFT NURSE.
[2018-06-16 07:08] LABS: BASOPHILS # (AUTO) 0.1 K/uL (0.00-0.22); BASOPHILS % (AUTO) 0.9 % (0.0-2.0); EOSINOPHILS # (AUTO) 0.2 K/uL (0-0.4); EOSINOPHILS % (AUTO) 3.7 % (0.0-4.0); HEMATOCRIT 35.3 % (36-48); HEMOGLOBIN 11.6 g/dL (12.0-16.0); LYMPHOCYTES # (AUTO) 2.2 K/uL (2.5-16.5); LYMPHOCYTES % (AUTO) 38.1 % (20.5-51.1); MEAN CORPUSCULAR HEMOGLOBIN 28 pg (27-31); MEAN CORPUSCULAR HGB CONC 33 g/dL (33-37); MEAN CORPUSCULAR VOLUME 86.4 fL (80-94); MONOCYTES # (AUTO) 0.4 K/uL (0.8-1.0); MONOCYTES % (AUTO) 7.2 % (1.7-9.3); NEUTROPHILS # (AUTO) 2.8 K/uL (1.8-7.7); NEUTROPHILS % (AUTO) 50.1 % (42.2-75.2); PLATELET COUNT (AUTO) 234 K/uL (140-450); RED BLOOD CELL COUNT(AUTO) 4.09 MIL/uL (4.20-5.40); RED CELL DISTRIBUTION WIDTH 13.8 % (11.6-13.7); WHITE BLOOD COUNT (AUTO) 5.7 K/uL (4.8-10.8)
[2018-06-16 07:16] LABS: MAGNESIUM 1.7 mg/dL (1.8-2.4); PHOSPHORUS 4.4 mg/dL (2.5-4.9)
[2018-06-16 07:20] LABS: ANION GAP 9.9 (8-16); CARBON DIOXIDE 28.4 mmol/L (21-32); CREATININE 1.1 mg/dL (0.6-1.3); POTASSIUM 4.3 mmol/L (3.5-5.1)
--- NOTE | 2018-06-16 07:29 | NUR ---
ENDORSED REPORT TO DAYSHIFT NURSE AT BEDSIDE FOR CONTINUITY OF CARE.
--- NOTE | 2018-06-16 07:32 | NUR ---
RECEIVED REPORT FROM CRYPTOGRAPHIC CLERK NURSE. PT IS RESTING IN BED, AAOX2, FORGETFUL, PT AMBULATES WITH ASSIST, PT HAS IV ON HER RIGHT AC, PATENT, INTACT, FLUSHING WELL, THERE IS REDNESS NOTED TO THE RIGHT EYE, NO DRAINAGE OR BLEEDING NOTED, NO S/S OF RESPIRATORY DISTRESS OR DISCOMFORT NOTED, DISCUSSED PLAN OF CARE WITH PT, PT REINFORCEMENT NEEDED, SAFETY/FALL/SEIZURE PRECAUTIONS ARE IN PLACE, CALL LIGHT WITHIN REACH, WILL CONTINUE TO MONITOR.
[2018-06-16 08:00] VITALS: BP 133/87
[2018-06-16] MEDS: LACTOBACILLUS RHAMNOSUS GG 1 EACH CAP PO SCH ×3 (08:52→16:36)
[2018-06-16] MEDS: BENAZEPRIL 20 MG TAB PO SCH ×2 (08:53→21:21)
[2018-06-16] MEDS: metFORMIN 500 MG TAB PO SCH (08:53)
[2018-06-16] MEDS: CALCIUM CARBONATE 500 MG TAB PO SCH (08:53)
[2018-06-16] MEDS: CARBIDOPA/LEVODOPA 25/100 MG 1 TAB PO SCH ×3 (08:53→16:36)
[2018-06-16] MEDS: SENNA 8.6 MG TAB PO SCH ×2 (08:53→21:20)
--- NOTE | 2018-06-16 08:53 | NUR ---
DUE MEDICATIONS GIVEN. PT TOLERATED WELL, CALL LIGHT IS WITHIN REACH, WILL CONTINUE TO MONITOR.
[2018-06-16] MEDS: NACL 0.9% 1,000 ML IV SCH (09:49)
--- NOTE | 2018-06-16 11:35 | NUR ---
PT IS RESTING IN BED, WATCHING TV, NO S/S OF DISTRESS NOTED, CALL LIGHT WITHIN REACH.
--- NOTE | 2018-06-16 11:38 | NUR ---
I CALLED THE PATIENT'S SON (HERBER) I REACHED HIS VOICEMAIL. I LEFT HIM A MESSAGE TO INFORM HIM OF THE CURRENT PLAN OF CARE FOR THE PATIENT. I ASKED HIM TO GIVE ME A CALL BACK IF HE HAD ANY QUESTIONS.
--- NOTE | 2018-06-16 14:50 | NUR ---
PT IS SLEEPING IN BED AT THIS TIME. CALL LIGHT WITHIN REACH.
--- NOTE | 2018-06-16 15:05 | NUR ---
Informatics Analyst Note: I faxed patient's updated medical information to [facility].
--- NOTE | 2018-06-16 15:55 | NUR ---
PHYSICAL THERAPY CO-SIGN The Physical Therapy Progress Notes documented by Sales Agent Business Services have been reviewed. Reviewed/Co-Signed by: Britney Cervantes PT Documentation Done by:ZENIA [facility] COLLAR TURNER POC REVIEWED W/ COLLAR TURNER; PROGRESSING W/ FUNC MOB & GAIT ENDURANCE. Addendum: 06/16/18 at 1556 by Britney Cervantes PT Amended: Links added.
[2018-06-16 16:00] VITALS: BP 119/79
[2018-06-16 18:27] LABS: APPEARANCE,URINE CLEAR (CLEAR); BILIRUBIN,URINE NEGATIVE (NEGATIVE); BLOOD, URINE NEGATIVE (NEGATIVE); COLOR,URINE YELLOW (YELLOW); LEUKOCYTE ESTERASE ,URINE NEGATIVE (NEGATIVE); NITRITE, URINE NEGATIVE (NEGATIVE); UGLUCOSE NEGATIVE (NEGATIVE)
[2018-06-16 18:45] LABS: BARBITURATE, URINE NEG. ng/ml (NEG <=200); BENZODIAZEPINE, URINE NEG. ng/mL (NEG <=200); CANNABINOID, URINE NEG. ng/mL (NEG <=50); COCAINE, URINE NEG. ng/mL (NEG <=300); OPIATE, URINE NEG. ng/mL (NEG <=2000); PHENCYCLIDINE SCREEN,URINE NEG. ng/mL (NEG <=25)
--- NOTE | 2018-06-16 19:05 | NUR ---
ENDORSED PT TO CHEST PAINTING AND SEALING SUPERVISOR NURSE FOR CONTINUITY OF CARE. PT STABLE AT THIS TIME.
[2018-06-16] MEDS: OLANZapine 5 MG TAB PO SCH (21:20)
[2018-06-16] MEDS: MIRTAZAPINE 15 MG TAB PO SCH (21:20)
[2018-06-17 00:11] VITALS: BP 115/70
--- NOTE | 2018-06-17 04:44 | NUR ---
PT IS CURRENTLY SLEEPING NO SOB NO S/S OF DISTRESS. WILL CONTINUE TO MONITOR.
[2018-06-17] MEDS: CLINDAMYCIN 300 MG in DEXTROSE 5% 50 ML IV SCH ×2 (05:24→13:00)
[2018-06-17] MEDS: BLOOD GLUCOSE MONITORING 1 DEV DEV FS SCH ×3 (05:33→17:03)
--- NOTE | 2018-06-17 07:09 | NUR ---
ASSUMED CONTINUITY OF CARE. NO SIGNS AND SYMPTOMS OF ACUTE DISTRESS NOTED. INITIAL ASSESSMENT DONE. RE-ORIENTED TO EVENTS AND SURROUNDINGS. KEEP COMFORTABLE ON BED. SEIZURE AND FALL PRECAUTION APPLIED. CALL LIGHT WITHIN REACH.
[2018-06-17 07:19] LABS: BASOPHILS % (AUTO) 0.4 % (0.0-2.0); EOSINOPHILS # (AUTO) 0.2 K/uL (0-0.4); EOSINOPHILS % (AUTO) 3.3 % (0.0-4.0); LYMPHOCYTES # (AUTO) 2.2 K/uL (2.5-16.5); LYMPHOCYTES % (AUTO) 33.5 % (20.5-51.1); MEAN CORPUSCULAR HEMOGLOBIN 28 pg (27-31); MEAN CORPUSCULAR HGB CONC 32 g/dL (33-37); MEAN CORPUSCULAR VOLUME 87.2 fL (80-94); MONOCYTES # (AUTO) 0.4 K/uL (0.8-1.0); MONOCYTES % (AUTO) 5.9 % (1.7-9.3); NEUTROPHILS # (AUTO) 3.7 K/uL (1.8-7.7); NEUTROPHILS % (AUTO) 56.9 % (42.2-75.2); PLATELET COUNT (AUTO) 242 K/uL (140-450); RED BLOOD CELL COUNT(AUTO) 4.24 MIL/uL (4.20-5.40); RED CELL DISTRIBUTION WIDTH 13.8 % (11.6-13.7); WHITE BLOOD COUNT (AUTO) 6.5 K/uL (4.8-10.8)
--- NOTE | 2018-06-17 07:19 | NUR ---
ENDORSED REPORT TO DAYSHIFT NURSE AT BEDSIDE FOR CONTINUITY OF CARE.
--- NOTE | 2018-06-17 07:20 | NUR ---
Patient's Plan of Care was discussed and reviewed with MASTICATOR: NADIA RODRIGUEZ
[2018-06-17 07:24] LABS: MAGNESIUM 2.1 mg/dL (1.8-2.4)
[2018-06-17 07:26] LABS: ANION GAP 7.3 (8-16); CARBON DIOXIDE 30.8 mmol/L (21-32); CREATININE 1.1 mg/dL (0.6-1.3); POTASSIUM 4.1 mmol/L (3.5-5.1)
[2018-06-17 08:00] VITALS: BP 148/81
[2018-06-17] MEDS: LACTOBACILLUS RHAMNOSUS GG 1 EACH CAP PO SCH ×3 (08:32→17:06)
[2018-06-17] MEDS: CALCIUM CARBONATE 500 MG TAB PO SCH (08:32)
[2018-06-17] MEDS: CARBIDOPA/LEVODOPA 25/100 MG 1 TAB PO SCH ×3 (08:32→17:06)
[2018-06-17] MEDS: metFORMIN 500 MG TAB PO SCH (08:32)
[2018-06-17] MEDS: BENAZEPRIL 20 MG TAB PO SCH (08:33)
[2018-06-17] MEDS: SENNA 8.6 MG TAB PO SCH (08:37)
[2018-06-17] MEDS: NACL 0.9% 1,000 ML IV SCH (09:49)
[2018-06-17] MEDS ORDERED: CLIN300C2 IV (10:18)
[2018-06-17] MEDS ORDERED: LACT10CA PO (10:18)
--- NOTE | 2018-06-17 10:20 | NUR ---
ASSISTED TO BATHROOM. TOLERATED WELL. NO C/O PAIN. NO SOB, NOTED. KEEP FREE FROM FALL.
[2018-06-17] MEDS ORDERED: CALCIUM ACETATE 667 MG TAB PO SCH (10:30)
[2018-06-17] MEDS ORDERED: CLIN600P4 IV (10:47)
--- NOTE | 2018-06-17 11:00 | NUR ---
IV ACCESS ON RIGHT AC GAUGE #20 GOT LEAKED AND REMOVED. PT. REFSUED IV INSERTION. INFORMED DR. HUTTON THAT PT. REFUSED IV INSERTION.
--- NOTE | 2018-06-17 11:25 | NUR ---
CALLED PT. SON -HERBER CROWDER AT AND LEFT MESSAGE AND CALL BACK NUMBER REGARDING PT. TRANSFER TO [facility]. INFORMED CHARGE NURSE COLLEEN MOLINA.
--- NOTE | 2018-06-17 11:28 | NUR ---
CALLED BARRON MOLINA FROM [facility] AND GAVE PT. REPORT REGARDING PT. TRANSFER.
[2018-06-17 12:00] VITALS: BP 102/67
--- NOTE | 2018-06-17 12:03 | NUR ---
Curb Builder Note: Per Hermes from [facility] , patient may go to room 3B at their facility anytime today, he stated he will call me back and provide me with accepting physician, keycase assembler Nannette made aware. Addendum: 06/17/18 at 1210 by Shara Valencia SS Per Case Irais Brunson patient is not on isolation.
--- NOTE | 2018-06-17 12:48 | NUR ---
PHYSICAL THERAPIST CAME FOR PT. EVAL AND TREATMENT.
--- NOTE | 2018-06-17 13:22 | NUR ---
1305 CALL PLACED TO HERBER CROWDER PT'S SON AND LEFT HIM VM REGARDING TRANSPORTATION BACK TO [facility]. LAST VISIT SON TRANSPORTED PT TO SNF AND CALL IS TO CONFIRM SON'S PLAN FOR TRANSPORTATION PT DOES NOT MEET CRITERIA FOR AMBULANCE TRANSPORT.
--- NOTE | 2018-06-17 14:38 | NUR ---
Pouch Maker Note: Per patient's son Chauncey Norman , he will come around 6pm today, supervisor picking crew patient, and take her to [facility], patient's nurse Obed made aware.
--- NOTE | 2018-06-17 17:00 | NUR ---
CALLED [facility] AND SPOKE TO HALIE REGARDING PT. MUTUAL FUND MANAGER TIME BY PT. SON AT 1800 TO BRING PT. TO [facility] PER INFORMATION AND DATA ARCHITECT ANALYST -MORALES. INFORMED CHARGE NURSE COLLEEN MOLINA.
--- NOTE | 2018-06-17 17:50 | NUR ---
PT. SON -HERBER CROWDER CAME FOR PT. BLOCK OUT MACHINE OPERATOR TO [facility].
--- NOTE | 2018-06-17 18:05 | NUR ---
D/C VIA WHEELCHAIR ACCOMPANIED BY PT. SON -HERBER CROWDER. AWAKE, ALERT, AND ORIENTED X2 WITH CONFUSION. SPEECH CLEAR. NO C/O PAIN. NO SOB, NOTED. IN STABLE CONDITION. INFORMED CHARGE NURSE COLLEEN MOLINA.
== END 2018-06-17 18:05 | DRG 603 ==
LOC: MED 16:40 → MTU 18:05
PROVIDERS: ADMIT General Practice; ATTEND General Practice
DX: L03.213 Periorbital cellulitis (principal); D68.59 Other primary thrombophilia; G20 Parkinson's disease; F29 Unspecified psychosis not due to a substance or known physiological condition; E11.9 Type 2 diabetes mellitus without complications; I10 Essential (primary) hypertension; E83.41 Hypermagnesemia; F32.9 Major depressive disorder, single episode, unspecified; M19.90 Unspecified osteoarthritis, unspecified site; R56.9 Unspecified convulsions; E83.39 Other disorders of phosphorus metabolism; Z79.84 Long term (current) use of oral hypoglycemic drugs; Z79.899 Other long term (current) drug therapy; Z91.81 History of falling; Z79.4 Long term (current) use of insulin
CPT/HCPCS: 36415; 70480; 71045; 80048; 80053; 80305; 81003; 82150; 82948; 83036; 83690; 83735; 83880; 84100; 84436; 84439; 84443; 84479; 84484; 85025; 85610; 85730; 87081; 93005; 93970; 96361; 96374; 97110; 97116; 97530; 99285; J1815; J2060; J3490; J7030; J7060; Q0092

== ENCOUNTER 2018-07-16 11:39 | Inpatient (IN) | payer OTHER ==
[~2018-07-16] VITALS: Ht 157.5 cm; Wt 52.6 kg
[~2018-07-16 11:39] MED LIST changes: +CLIN600P4 IV; +LACT10CA PO; +SENN-72 PO
[2018-07-16 11:49] VITALS: BP 125/72
--- NOTE | 2018-07-16 12:04 | NUR ---
BIB EMS FROM [place] PLACED ON BED 5 WITH C/O ALTERED PER [facility] "WAS PUTTING HER TOOT BRUSH 5" DOWN HER THROAT TODAY". PT NOT TRYING TO HARM HERSELF AT THIS TIME, NOT SCRATCHING OR GOUGING HER EYES PER [facility]; KEEP TALKING TO HERSELF "XRAY FOR ME PLEAS" REPEATEDLY; ABLE TO ANSWER SOME QUESTIONS - HER NAME; BED RAIL UP X 2; ALL CORDS REMOVE, ALL CLOTHES REMOVED, PLACED ON A GOWN; TECH MARILYN AT BEDSIDE; PLACED ON 5150 BY OFFICER Andry PAULA FROM [facility]. HX; PSHYCOSIS, ANXIETY, DPRESSION, HTN, DEMENTIA, SEIZURES, DEPRESSION RX; METFORMIN, ATENOLOL --
[2018-07-16 12:38] LABS: BASOPHILS % (AUTO) 0.7 % (0.0-2.0); EOSINOPHILS # (AUTO) 0.1 K/uL (0-0.4); EOSINOPHILS % (AUTO) 1.9 % (0.0-4.0); HEMATOCRIT 37.8 % (36-48); HEMOGLOBIN 12.5 g/dL (12.0-16.0); LYMPHOCYTES # (AUTO) 1.3 K/uL (2.5-16.5); LYMPHOCYTES % (AUTO) 19.1 % (20.5-51.1); MEAN CORPUSCULAR HEMOGLOBIN 29 pg (27-31); MEAN CORPUSCULAR HGB CONC 33 g/dL (33-37); MEAN CORPUSCULAR VOLUME 86.9 fL (80-94); MONOCYTES # (AUTO) 0.4 K/uL (0.8-1.0); MONOCYTES % (AUTO) 5.8 % (1.7-9.3); NEUTROPHILS # (AUTO) 4.8 K/uL (1.8-7.7); NEUTROPHILS % (AUTO) 72.5 % (42.2-75.2); PLATELET COUNT (AUTO) 254 K/uL (140-450); RED BLOOD CELL COUNT(AUTO) 4.35 MIL/uL (4.20-5.40); WHITE BLOOD COUNT (AUTO) 6.6 K/uL (4.8-10.8)
[2018-07-16 12:55] LABS: ACETAMINOPHEN < 0.5 ug/ml (10-30); ALBUMIN 3.9 g/dL (3.4-5.0); ANION GAP 13.5 (8-16); ASPARTATE AMINOTRANSFERASE 12 U/L (15-37); CARBON DIOXIDE 27.4 mmol/L (21-32); CHLORIDE 103 mmol/L (98-107); CREATININE 1.4 mg/dL (0.6-1.3); GFR ARICAN-AMERICAN 49 mL/min (>90); GLUCOSE 114 mg/dL (74-106); POTASSIUM 4.9 mmol/L (3.5-5.1); SALICYLATE < 2.8 mg/dL (2.8-20.0); SODIUM SERUM 139 mmol/L (136-145); TOTAL BILIRUBIN 0.4 mg/dL (0.0-1.0); UREA NITROGEN, BLOOD 36 mg/dL (7-18)
--- NOTE | 2018-07-16 13:15 | NUR ---
PT RESTING IN BED; TALKING EXCESSIVELY. CURTAIN IS OPEN, PT IS RIGHT IN FRONT OF NURSING STATION AND WITH AN RN AT ALL TIMES.
[2018-07-16 14:05] LABS: BARBITURATE, URINE NEG. ng/ml (NEG <=200); BENZODIAZEPINE, URINE NEG. ng/mL (NEG <=200); CANNABINOID, URINE NEG. ng/mL (NEG <=50); COCAINE, URINE NEG. ng/mL (NEG <=300); OPIATE, URINE NEG. ng/mL (NEG <=2000); PHENCYCLIDINE SCREEN,URINE NEG. ng/mL (NEG <=25)
--- NOTE | 2018-07-16 14:59 | NUR ---
PT IS STILL CONTINUTING TO SPEAK EXCESSIVELY WITH PRESSURED SPEECH. PT CURTAIN IS OPEN, BED LOCKED AND IN LOWEST POSITION.
--- NOTE | 2018-07-16 16:09 | NUR ---
A REQUEST FOR BEHAVIORAL HEALTH ASSISTANCE HAS BEEN REQUESTED. PLACEMENT PACKET RECEIVED FROM NALINI. CONTACTED CN AT [facility] TO REVIEW PACKET. S/W WITH YAW AT [phone].
[2018-07-16] MEDS ORDERED: diphenhydrAMINE 50 MG/ML VIAL IM ONE (16:10)
--- NOTE | 2018-07-16 16:31 | NUR ---
PER YAW, NO BEDS AT THIS TIME. PLACEMENT PACKET SENT TO [facility]
[2018-07-16] MEDS ORDERED: LORazepam 2 MG/ML VIAL IM ONE (17:35)
[2018-07-16] MEDS ORDERED: HALOPERIDOL IM 5 MG/ML VIAL IM ONE (18:10)
--- NOTE | 2018-07-16 18:34 | NUR ---
PT ATE 90% OF MEAL
[2018-07-16] MEDS: NACL 0.9% 1,000 ML IV SCH (18:41)
[2018-07-16] MEDS ORDERED: DOCUSATE SODIUM 100 MG GELCAP PO PRN (18:45)
[2018-07-16] MEDS ORDERED: ONDANSETRON 4 MG/2 ML VIAL IM/IVP PRN (18:45)
[2018-07-16] MEDS ORDERED: HYDROcodone/APAP 5/325 MG 1 TAB TAB PO PRN (18:45)
[2018-07-16] MEDS ORDERED: LORazepam 2 MG/ML VIAL IM/IVP PRN (18:45)
[2018-07-16] MEDS ORDERED: ACETAMINOPHEN 325 MG TAB PO PRN (18:45)
[2018-07-16] MEDS ORDERED: MORPHINE SULFATE 2 MG/ML SYR IVP PRN (18:45)
[2018-07-16] MEDS ORDERED: ZOLPIDEM 5 MG TAB PO PRN (19:00)
--- NOTE | 2018-07-16 19:12 | NUR ---
[facility]. Gave bedside report to rn for continuation of care.
[2018-07-16 19:30] VITALS: BP 132/79
--- NOTE | 2018-07-16 19:30 | NUR ---
Admitted from ER TO [facility], with chief complaint of STICKING A TOOTHBRUSH DOWN TO HER THROAT, 5150. , 62 y/o ,Female, SLEEPING, SEDATED, ANSWERS WHEN QUESTIONS ASKED BUT BACK TO SLEEP AGAIN. SOUTH KOREAN BUT ABLE TO SPEAK AND UNDERSTAND [facility] [place]. VERY CONFUSED. WAS MEDICATED IN ER WITH BENADRYL, ATIVAN AND HALDOL. RESPIRATION EVEN AND UNLABORED. VS STABLE. NO APPEARANCE OF PAIN NOTED, 0/10. HEAD TO TOE ASSESSMENT DONE WITH CHARGE NURSE JEMAL, SKIN INTACT.oriented to call light, bed, phone,television, bathroom,smoking policy,visiting hours, procedures, ID bracelet on. Belongings list checked.
--- NOTE | 2018-07-16 19:30 | NUR ---
Patient's Plan of Care was discussed and reviewed with SLURRY MIXER: Terence HOWARD
[2018-07-16] MEDS ORDERED: INSULIN LISPRO SLIDING SCALE 100 UNITS/ML VIAL SUBQ PRN (19:50)
[2018-07-16] MEDS ORDERED: DEXTROSE 50% 50 ML SYR IVP PRN (19:50)
[2018-07-16] MEDS ORDERED: MECLIZINE 25 MG TAB PO PRN (19:50)
[2018-07-16 19:57] LABS: FREE T4 (FREE THYROXINE) 0.88 ng/dL (0.76-1.46); MAGNESIUM 1.9 mg/dL (1.8-2.4); PHOSPHORUS 4.4 mg/dL (2.5-4.9); THYROID STIMULATING HORMONE 0.77 uIU/mL (0.34-3.74)
[2018-07-16 20:01] LABS: PROTHROMBIN TIME 10.1 secs (10.8-13.4)
--- NOTE | 2018-07-16 20:30 | NUR ---
WOKE UP INSISTING THAT SHE NEEDS TO HAVE CT SCAN OF HER NOSE DOWN TO HER THROAT. STATED SHE SWALLOWED HAIR THAT DOES NOT COMES OUT. KEEPS ON REPEATING AND INSISTING THAT SHE NEEDS TO HAVE A CT SCAN. DR. GUTIÉRREZ CAME AND EXPLAINED TO THE PATIENT THAT SHE DOES NOT NEED IT, SHE WAS EXAMINED IN ER AND THE DOCTOR DID NOT SEE ANYTHING. STILL DID NOT STOP STILL KEEP ON TALKING ENDLESSLY THAT SHE NEEDS A CT SCAN.
[2018-07-16] MEDS: OLANZapine 5 MG TAB PO SCH (21:00)
[2018-07-16] MEDS: MIRTAZAPINE 15 MG TAB PO SCH (21:00)
[2018-07-16] MEDS: BENAZEPRIL 20 MG TAB PO SCH (21:00)
[2018-07-16] MEDS: SENNA 8.6 MG TAB PO SCH (21:00)
--- NOTE | 2018-07-16 21:45 | NUR ---
BED IS BOTHERED BY PATIENT ENDLESS TALKING, REQUESTING FOR CT SCAN. TRANSFERRED PATIENT TO ROOM 107A.
--- NOTE | 2018-07-16 21:53 | NUR ---
REFUSED TO TAKE HER NIGHT MEDICATIONS, REFUSED TO EAT. ALL SHE WANTS IS TO HAVE CT SCAN OF HEAD AND THROAT.
--- NOTE | 2018-07-16 21:57 | NUR ---
VERY AGITATED, MEDICATED WITH HALDOL IM ORDERED.
[2018-07-16] MEDS: BLOOD GLUCOSE MONITORING 1 DEV DEV FS SCH (22:00)
[2018-07-16] MEDS ORDERED: HALOPERIDOL IM 5 MG/ML VIAL IM SCH (22:00)
--- NOTE | 2018-07-16 22:15 | NUR ---
STILL KEEP ON REPEATING THAT SHE WANTS TO A HAVE CT SCAN OF THE THROAT.
[2018-07-16 22:49] LABS: APPEARANCE,URINE CLEAR (CLEAR); BILIRUBIN,URINE NEGATIVE (NEGATIVE); BLOOD, URINE NEGATIVE (NEGATIVE); COLOR,URINE YELLOW (YELLOW); LEUKOCYTE ESTERASE ,URINE NEGATIVE (NEGATIVE); NITRITE, URINE NEGATIVE (NEGATIVE); UGLUCOSE NEGATIVE (NEGATIVE)
--- NOTE | 2018-07-17 | NUR ---
VERBALIZED SHE WANTS TO VOID, BED MEDRANO GIVEN BY RECORDING STUDIO SET UP WORKER. VOIDED A LOT.
[2018-07-17] MEDS: NACL 0.9% 1,000 ML IV SCH ×2 (00:44→11:21)
--- NOTE | 2018-07-17 02:00 | NUR ---
STILL REPEATING THAT SHE WANTS A CT SCAN OF HER THROAT. ADVISED TO GO TO SLEEP.
--- NOTE | 2018-07-17 03:30 | NUR ---
NO AGITATION, SLEEPING COMFORTABLY IN BED.
--- NOTE | 2018-07-17 04:30 | NUR ---
AWAKE, STILL INSISTING TO HAVE A CT SCAN BELOW HER EYES AND DOWN TO HER THROAT.
--- NOTE | 2018-07-17 05:45 | NUR ---
AWAKE, STILL INSISTING TO HAVE A CT OF HER FACE AND THROAT. REASSURED WILL TELL
--- NOTE | 2018-07-17 05:46 | NUR ---
BS CHECKED -79, 1 CUP OF ORANGE JUICE GIVEN. ABLE TO TOLERATE WELL.
--- NOTE | 2018-07-17 06:20 | NUR ---
DR. GARCIA CAME AND CHECK PATIENT, STILL KEEP ON TELLING MD TO DO CT OF HER THROAT.
--- NOTE | 2018-07-17 06:35 | NUR ---
APPLIED BILATERAL LEG SEQUENTIALS ORDERED.
[2018-07-17] MEDS: BLOOD GLUCOSE MONITORING 1 DEV DEV FS SCH ×4 (06:49→21:37)
--- NOTE | 2018-07-17 07:00 | NUR ---
CONDITION REMAIN STABLE BUT STILL CONFUSED. SAFETY MAINTAINED DURING SHIFT. WILL ENDORSE TO AM NURSE FOR CONTINUITY OF CARE.
[2018-07-17 07:10] LABS: CREATININE 1.2 mg/dL (0.6-1.3)
[2018-07-17 07:12] LABS: CHOL/HDL RATIO 2.7 (1-4.5); PHOSPHORUS 4.4 mg/dL (2.5-4.9)
[2018-07-17 07:18] LABS: POTASSIUM 4.2 mmol/L (3.5-5.1)
--- NOTE | 2018-07-17 07:20 | NUR ---
ENDORSED TO AM NURSE FOR CONTINUITY OF CARE.
--- NOTE | 2018-07-17 07:21 | NUR ---
REPORT RECEIVED AT BEDSIDE FOR CONTINUITY OF CARE. PATIENT CONFUSED, INFORMING RN THAT SHE WANTS XRAY DONE OF HER THROAT BECAUSE OF A HAIR STUCK DOWN THERE. PATIENT ON BEDREST, DX OF 5150 GRAVELY DISABLED. PATIENT HAS SCDS, IV TO LEFT AC 24 G WITH NS INFUSING AT 60 ML/HR. PATIENT'S RESPIRATIONS ARE EVEN AND UNLABORED ON ROOM AIR. SKIN IS INTACT. UPDATED BOARD. VERBALIZED PLAN OF CARE WITH PATIENT. PATIENT VERBALIZED UNDERSTANDING BUT INSIST ON GETTING XRAY TO "SEE THE HAIR IN MY THROAT". SAFETY PRECAUTION IN PLACE, CALL LIGHT WITHIN REACH, WILL CONTINUE TO MONITOR PATIENT.
[2018-07-17] MEDS ORDERED: MECLIZINE 25 MG TAB PO PRN (07:25)
[2018-07-17 07:35] LABS: CARBON DIOXIDE 28.2 mmol/L (21-32)
[2018-07-17 07:36] LABS: MAGNESIUM 1.9 mg/dL (1.8-2.4)
--- NOTE | 2018-07-17 07:41 | NUR ---
PATIENT HAS BEEN SCREENED AND CATEGORIZED LOW RISK. PATIENT WILL BE SEEN WITHIN 7 DAYS OF ADMISSION. 07/23/[address]
[2018-07-17 08:00] VITALS: BP 113/63
[2018-07-17 08:14] LABS: T4 (THYROXINE) 5.3 ug/dL (4.5-12.0)
[2018-07-17 09:05] LABS: HEMATOCRIT 37.2 % (36-48); HEMOGLOBIN 12.4 g/dL (12.0-16.0); RED BLOOD CELL COUNT(AUTO) 4.22 MIL/uL (4.20-5.40); WHITE BLOOD COUNT (AUTO) 6.4 K/uL (4.8-10.8)
[2018-07-17 09:06] LABS: BASOPHILS % (AUTO) 0.9 % (0.0-2.0); EOSINOPHILS % (AUTO) 3.8 % (0.0-4.0); LYMPHOCYTES % (AUTO) 27.2 % (20.5-51.1); MEAN CORPUSCULAR HEMOGLOBIN 29 pg (27-31); MEAN CORPUSCULAR HGB CONC 33 g/dL (33-37); MEAN CORPUSCULAR VOLUME 88.2 fL (80-94); MONOCYTES % (AUTO) 7.6 % (1.7-9.3); NEUTROPHILS # (AUTO) 3.9 K/uL (1.8-7.7); NEUTROPHILS % (AUTO) 60.5 % (42.2-75.2); PLATELET COUNT (AUTO) 259 K/uL (140-450); RED CELL DISTRIBUTION WIDTH 12.9 % (11.6-13.7)
[2018-07-17 09:07] LABS: BASOPHILS # (AUTO) 0.1 K/uL (0.00-0.22); EOSINOPHILS # (AUTO) 0.2 K/uL (0-0.4); LYMPHOCYTES # (AUTO) 1.7 K/uL (2.5-16.5); MONOCYTES # (AUTO) 0.5 K/uL (0.8-1.0)
[2018-07-17] MEDS: metFORMIN 500 MG TAB PO SCH (09:41)
[2018-07-17] MEDS: SENNA 8.6 MG TAB PO SCH ×2 (09:42→21:37)
[2018-07-17] MEDS: BENAZEPRIL 20 MG TAB PO SCH ×2 (09:42→21:00)
[2018-07-17] MEDS: CARBIDOPA/LEVODOPA 25/100 MG 1 TAB PO SCH ×3 (09:42→17:54)
--- NOTE | 2018-07-17 09:42 | NUR ---
ORDERED MEDICATIONS GIVEN. PATIENT TOLERATED THEM WELL. NO SIGNS OF DISTRESS OR SOB NOTED ON ROOM AIR. PATIENT DENIES PAIN. PATIENT ASKED ABOUT XRAY, INFORMED PATIENT THAT RN WILL SPEAK TO DOCTORS ABOUT PATIENT'S REQUEST. WILL CONTINUE TO MONITOR PATIENT.
--- NOTE | 2018-07-17 10:15 | NUR ---
PATIENT WILL BE TAKEN TO CT FOR CT OF HEAD. PATIENT AGITATED, PRN ATIVAN GIVEN BEFORE PATIENT TAKEN TO CT. DR. GARCIA AWARE. PATIENT TOLERATED IT WELL. WILL CONTINUE TO MONITOR PATIENT.
--- NOTE | 2018-07-17 10:42 | NUR ---
PATIENT TAKEN TO RADIOLOGY FOR CT OF HEAD. WILL AWAIT FOR RESULTS. PATIENT IN STABLE CONDITION.
--- NOTE | 2018-07-17 11:13 | NUR ---
PATIENT BACK FROM CT. PATIENT RESTING COMFORTABLY IN BED, NO SIGNS OF DISTRESS OR SOB NOTED ON ROOM AIR. PATIENT ASKING FOR RESULTS, INFORMED HER THAT ONCE IT IS IN, RN WILL INFORM PATIENT. SHE VERBALIZED UNDERSTANDING. SAFTEY PRECAUTION IN PLACE, CALL LIGHT WITHIN REACH, WILL CONTINUE TO MONITOR PATIENT.
--- NOTE | 2018-07-17 12:24 | NUR ---
ORDERED MEDICATIONS GIVEN. PATIENT TOLERATED THEM WELL. NO SIGNS OF DISTRESS OR SOB NOTED ON ROOM AIR. PATIENT DENIES PAIN. SAFETY PRECAUTION IN PLACE, CALL LIGHT WITHIN REACH. WILL CONTINUE TO MONITOR PATIENT.
[2018-07-17 16:00] VITALS: BP 104/69
--- NOTE | 2018-07-17 17:54 | NUR ---
ORDERED MEDICATIONS GIVEN. PATIENT TOLERATED THEM WELL. NO SIGNS OF DISTRESS OR SOB NOTED ON ROOM AIR. PATIENT DENIES PAIN. SAFETY PRECAUTION IN PLACE, CALL LIGHT WITHIN REACH, WILL CONTINUE TO MONITOR PATIENT.
--- NOTE | 2018-07-17 18:19 | NUR ---
Contacted both [place] and [facility] regarding possible beds [place] has no umer psych beds available [facility] would patient return agreement prior to transfer. Addendum: 07/17/18 at 1826 by Wendy Grossman CM [facility] would patient return agreement prior to transfer. The form has been sent to [facility]. s/w Alida, who has already received the okay to accept patient back at their facility.
--- NOTE | 2018-07-17 18:39 | NUR ---
PATIENT AMBULATED TO BATHROOM ON STEADY GAIT WITH STANDBY ASSIST FROM RN. PATIENT VOIDED. PATIENT NOW BACK IN BED, COMFORTABLE. WILL CONTINUE TO MONITOR PATIENT.
--- NOTE | 2018-07-17 19:33 | NUR ---
REPORT GIVEN TO MEDICAL LEAD NURSE AT BEDSIDE FOR CONTINUITY OF CARE. PATIENT IN STABLE CONDITION.
--- NOTE | 2018-07-17 19:34 | NUR ---
RECEIVED REPORT FROM DAYSHIFT NURSE AT BEDSIDE FOR CONTINUITY OF CARE PT AAOX1. PT IV NOTED RAC NS 60 ML/HR. NO SOB NO S/S OF DISTRESS ON RA. PT HAS BED ALARM PLACED. PT CONFUSED AT TIMES. BED LOWERED CALL LIGHT WITHIN REACH WILL CONTINUE TO MONITOR.
[2018-07-17] MEDS: MIRTAZAPINE 15 MG TAB PO SCH (21:37)
[2018-07-17] MEDS: OLANZapine 5 MG TAB PO SCH (21:37)
--- NOTE | 2018-07-17 23:21 | NUR ---
Received paperwork per requested by Michael Macedo. Faxed it over to Michael Macedo. No call back left message on Intake Voicemail. will follow up.
[2018-07-18] MEDS: NACL 0.9% 1,000 ML IV SCH ×2 (04:01→16:31)
[2018-07-18 04:51] VITALS: BP 112/75
--- NOTE | 2018-07-18 05:38 | NUR ---
No updates from contracted hospitals at this time. Michael Macedo has not called back. will endorse to morning shift to follow up with Michael Macedo.
[2018-07-18] MEDS: BLOOD GLUCOSE MONITORING 1 DEV DEV FS SCH ×4 (06:21→20:26)
--- NOTE | 2018-07-18 06:23 | NUR ---
BG 72. PT REFUSED JUICE. WILL CONTINUE TO MONITOR.
[2018-07-18 06:48] LABS: BASOPHILS % (AUTO) 0.8 % (0.0-2.0); EOSINOPHILS # (AUTO) 0.2 K/uL (0-0.4); EOSINOPHILS % (AUTO) 4.1 % (0.0-4.0); HEMATOCRIT 36.4 % (36-48); LYMPHOCYTES % (AUTO) 40.5 % (20.5-51.1); MEAN CORPUSCULAR HEMOGLOBIN 29 pg (27-31); MEAN CORPUSCULAR HGB CONC 33 g/dL (33-37); MEAN CORPUSCULAR VOLUME 87.4 fL (80-94); MONOCYTES # (AUTO) 0.4 K/uL (0.8-1.0); MONOCYTES % (AUTO) 7.5 % (1.7-9.3); NEUTROPHILS # (AUTO) 2.4 K/uL (1.8-7.7); NEUTROPHILS % (AUTO) 47.1 % (42.2-75.2); PLATELET COUNT (AUTO) 218 K/uL (140-450); RED BLOOD CELL COUNT(AUTO) 4.16 MIL/uL (4.20-5.40)
--- NOTE | 2018-07-18 07:29 | NUR ---
ENDORSED REPORT TO DAYSHIFT NURSE AT BEDSIDE FOR CONTINUITY OF CARE.
--- NOTE | 2018-07-18 07:30 | NUR ---
RECEIVED REPORT FROM HEALTH PROGRAM DIRECTOR RN. PT IN STABLE CONDITION. AAO X1. NOT VERBALIZING MUCH. SKIN INTACT. LUNGS CTA. HEART RHYTHM NORMAL. IV SITE PATENT AND ASYMPTOMATIC, INFUSING IVF PER MD ORDERS. ALL SAFETY PRECAUTIONS IN PLACE, WILL CONTINUE TO MONITOR.
[2018-07-18 07:46] LABS: ANION GAP 8.9 (8-16); CARBON DIOXIDE 28.2 mmol/L (21-32); POTASSIUM 4.1 mmol/L (3.5-5.1)
[2018-07-18 08:00] VITALS: BP 127/69
--- NOTE | 2018-07-18 08:07 | NUR ---
PT SEEN EATING BREAKFAST IN BED.
--- NOTE | 2018-07-18 08:45 | NUR ---
Mycology Teacher Notes: I attempted to meet with Patient for a screen. Patient was sleeping and will not wake up to speak to HOGSHEAD BUILDER despite attempts.
[2018-07-18] MEDS: metFORMIN 500 MG TAB PO SCH (08:54)
[2018-07-18] MEDS: CARBIDOPA/LEVODOPA 25/100 MG 1 TAB PO SCH ×3 (08:54→17:19)
[2018-07-18] MEDS: BENAZEPRIL 20 MG TAB PO SCH ×2 (08:55→20:26)
--- NOTE | 2018-07-18 08:55 | NUR ---
SCHEDULED MEDS ADMINISTERED PER MD ORDERS. PT IN STABLE CONDITION. SWALLOWS PILLS WITHOUT PROBLEMS.
[2018-07-18] MEDS: SENNA 8.6 MG TAB PO SCH ×2 (08:57→20:26)
--- NOTE | 2018-07-18 09:41 | NUR ---
Wood Furniture Assembler Notes: I attempted to contact Patient's son Chauncey Norman at patient's son did not responded and I left him a voice mail MSG with my contact information and a request for a call back.
--- NOTE | 2018-07-18 11:40 | NUR ---
PT AWAKE AND RESTING IN BED. DENIES PAIN AND DISCOMFORT. ALL SAFETY PRECAUTIONS IN PLACE, WILL CONTINUE TO MONITOR.
--- NOTE | 2018-07-18 12:09 | NUR ---
PT SLEEPING IN BED, AROUSABLE BY VOICE. NO COMPLAINTS OF PAIN OR DISCOMFORT. SCHEDULED MEDS ADMINISTERED PER MD ORDERS.
--- NOTE | 2018-07-18 14:45 | NUR ---
PT PLACED ON BED MEDRANO AND HAD BOWEL MOVEMENT. STOOL IS FORMED.
[2018-07-18 16:00] VITALS: BP 103/54
--- NOTE | 2018-07-18 16:30 | NUR ---
BLOOD SUGAR IS 80. WILL MONITOR FOR SIGNS/SYMPTOMS OF HYPOGLYCEMIA AND MONITOR DINNER INTAKE.
--- NOTE | 2018-07-18 17:21 | NUR ---
SCHEDULED MEDS GIVEN TO PT. NO SIGNS/SYMPTOMS OF HYPOGLYCEMIA. PT REFUSES JUICE NOW.
--- NOTE | 2018-07-18 17:52 | NUR ---
CUT UP PATIENT'S FOOD PER PT REQUEST. PT EATING DINNER NOW.
--- NOTE | 2018-07-18 19:14 | NUR ---
ENDORSED PLAN OF CARE TO WOODWORKING MACHINIST RN AT BEDSIDE. PT IN STABLE CONDITION.
[2018-07-18] MEDS: OLANZapine 5 MG TAB PO SCH (20:25)
[2018-07-18] MEDS: MIRTAZAPINE 15 MG TAB PO SCH (20:26)
--- NOTE | 2018-07-18 20:30 | NUR ---
PT TOOK ALL PO MEDS WELL. PT RESTING IN BED CALL LIGHT WITHIN REACH WILL CONTINUE TO MONITOR.
[2018-07-19] VITALS: BP 100/60
--- NOTE | 2018-07-19 04:21 | NUR ---
No update from contacted facilities at this time. I have tried to call Michael Macedo again. no answer, dial tone kept going. Called [facility] and s/w Yisel, they have no beds at this time. Called [facility] and s/w Marlon they have no beds at this time and are still reviewing charts. Called [facility] and s/w Fátima, they have no beds at this time and are still reviewing charts. Called [facility] and s/w Pao, No vacancies at this time. Called [facility] s/w Chiquis, No bed vacancies. Called [facility] and Left message, No Answer. Called [facility] and s/w Og, No beds available today. Called [facility] and s/w Cristel, No bed vacancies tonight. Called [facility] and s/w Colette, no Beds at this time. Called [facility] and s/w Yaron, No beds available at this time. Called [facility] and s/w Flor, No vacancies at this time. Will endorse to morning shift to continue looking for placement and follow up with Michael Macedo.
[2018-07-19] MEDS: BLOOD GLUCOSE MONITORING 1 DEV DEV FS SCH ×3 (05:53→16:41)
--- NOTE | 2018-07-19 05:53 | NUR ---
BG IS 75. PT REFUSED JUICE WILL CONTINUE TO MONITOR. PT RATHER WAIT FOR BREAKFAST.
--- NOTE | 2018-07-19 07:35 | NUR ---
RECEIVED REPORT FROM SILK SCREEN REPAIRER NURSE. PT IS SLEEPING IN BED, BUT EASILY AWAKEN, PT IS AAOX1, AMBULATES WITH ASSIST, IV IS ON THE RIGHT FA, PATENT, INTACT, PT IS ON ROOM AIR, SKIN IS INTACT, NO S/S OF RESPIRATORY DISTRESS OR DISCOMFORT NOTED, DISCUSSED PLAN OF CARE WITH PT, PT REINFORCEMENT NEEDED, SAFETY/FALL PRECAUTIONS ARE IN PLACE CALL LIGHT IS WITHIN REACH, WILL CONTINUE TO MONITOR.
[2018-07-19 08:00] VITALS: BP 112/66
[2018-07-19] MEDS: metFORMIN 500 MG TAB PO SCH (08:46)
[2018-07-19] MEDS: BENAZEPRIL 20 MG TAB PO SCH (08:47)
[2018-07-19] MEDS: CARBIDOPA/LEVODOPA 25/100 MG 1 TAB PO SCH ×2 (08:48→11:51)
[2018-07-19] MEDS: SENNA 8.6 MG TAB PO SCH (08:48)
--- NOTE | 2018-07-19 11:25 | NUR ---
ASSISTED PT WITH BED MEDRANO, PT HAD CLEAR YELLOW URINE OUTPUT. ALL NEEDS ARE MET AT THIS TIME. CALL LIGHT IS WITHIN REACH. WILL CONTINUE TO MONITOR.
--- NOTE | 2018-07-19 11:28 | NUR ---
A NEW PLACEMENT PACKET RESENT TO [facility] WITH REQUIRED PATIENT RETURN AGREEMENT SIGNED BY [facility] BRITTON.
[2018-07-19 12:05] LABS: BASOPHILS % (AUTO) 0.8 % (0.0-2.0); EOSINOPHILS # (AUTO) 0.2 K/uL (0-0.4); EOSINOPHILS % (AUTO) 3.8 % (0.0-4.0); HEMATOCRIT 36.6 % (36-48); HEMOGLOBIN 11.9 g/dL (12.0-16.0); LYMPHOCYTES # (AUTO) 1.9 K/uL (2.5-16.5); MEAN CORPUSCULAR HEMOGLOBIN 28 pg (27-31); MEAN CORPUSCULAR HGB CONC 33 g/dL (33-37); MEAN CORPUSCULAR VOLUME 86.5 fL (80-94); MONOCYTES # (AUTO) 0.3 K/uL (0.8-1.0); MONOCYTES % (AUTO) 5.7 % (1.7-9.3); NEUTROPHILS % (AUTO) 54.7 % (42.2-75.2); PLATELET COUNT (AUTO) 231 K/uL (140-450); RED BLOOD CELL COUNT(AUTO) 4.23 MIL/uL (4.20-5.40); RED CELL DISTRIBUTION WIDTH 13.6 % (11.6-13.7); WHITE BLOOD COUNT (AUTO) 5.4 K/uL (4.8-10.8)
--- NOTE | 2018-07-19 12:33 | NUR ---
THE BEHAVIORAL HEALTH CALL CENTER RECEIVED CALL FROM DIAZ AT [facility], THEY ARE REQUESTING [facility] AND [facility]. CALLED [facility] AND ADVISED JAZMYN, PATIENT TO BE POSSIBLY GOING TO [facility]. ADVISED [facility] AND [facility] ARE BEING REQUESTED. LABS RESULTS ARE CURRENTLY PENDING AND UA TO BE ORDERED PER [facility] REQUEST.
[2018-07-19 12:55] LABS: CARBON DIOXIDE 28.1 mmol/L (21-32); CREATININE 1.1 mg/dL (0.6-1.3); POTASSIUM 4.1 mmol/L (3.5-5.1)
[2018-07-19] MEDS: NACL 0.9% 1,000 ML IV SCH (13:27)
--- NOTE | 2018-07-19 14:30 | NUR ---
FAXED OVER LAB RESULTS FROM TODAY TO [facility] . UA IS STILL PENDING.
--- NOTE | 2018-07-19 16:13 | NUR ---
CALLED THE PATIENT SON (HERBER) AT [phone], I REACHED HIS VOICEMAIL. I LET HIM KNOW THE PATIENT WAS BEING TRANSFERRED TO [facility]. I LEFT HIM THE PHONE NUMBER TO [facility] AND I LEFT A CALL BACK NUMBER IN CASE HE HAD ANY QUESTIONS.
--- NOTE | 2018-07-19 16:15 | NUR ---
CM NOTE PER CHARGE NURSE DMITRY SHE RECEIVED A CALL FROM ANUJ OF [facility] PH# [phone] THAT THEY ARE ABLE TO TAKE PATIENT UNDER DR. MCCABE BUT SHE DOES NOT HAVE THE EXACT RM # AT THIS TIME AND PATIENT HAS TO PASS BY THEIR ER. PER ALEX OF [facility] PH# [phone], PATIENT WILL BE PICKED UP AT 4:45 GOING TO [facility]. FAXED PCS FORM TO [facility] [phone]. Addendum: 07/19/18 at 1619 by Jen Sher CM CHARGE NURSE DMITRY HANCOCK
--- NOTE | 2018-07-19 16:26 | NUR ---
I CALLED [facility] BR[facility] AT [phone] AND GAVE REPORT TO STONE.
--- NOTE | 2018-07-19 16:45 | NUR ---
DISCHARGE INSTRUCTIONS GIVEN, IV REMOVED, CATHETER TIP INTACT.
--- NOTE | 2018-07-19 16:55 | NUR ---
UA WAS COLLECTED AND TAKEN TO LAB. I LET CHRISTIAN KNOW I NEEDED IT UA RESULTS STAT BECAUSE PATIENT WAS BEING TRANSFERRED AND TO PSYCH FACILITY.
[2018-07-19 17:08] LABS: APPEARANCE,URINE CLEAR (CLEAR); BILIRUBIN,URINE NEGATIVE (NEGATIVE); BLOOD, URINE NEGATIVE (NEGATIVE); COLOR,URINE YELLOW (YELLOW); LEUKOCYTE ESTERASE ,URINE NEGATIVE (NEGATIVE); NITRITE, URINE NEGATIVE (NEGATIVE); UGLUCOSE NEGATIVE (NEGATIVE)
--- NOTE | 2018-07-19 17:32 | NUR ---
[facility] HERE TO STRATEGY SPECIALIST PATIENT. ID WRIST BAND REMOVED. PT STABLE UPON DISCHARGE.
== END 2018-07-19 17:35 | disposition short-term general hospital (02) | DRG 682 ==
LOC: MED 11:39 → MTU 18:46
PROVIDERS: ADMIT Family Medicine; ATTEND Family Medicine
DX: N17.0 Acute kidney failure with tubular necrosis (principal); G93.40 Encephalopathy, unspecified; F33.3 Major depressive disorder, recurrent, severe with psychotic symptoms; I10 Essential (primary) hypertension; G20 Parkinson's disease; F02.80 Dementia in other diseases classified elsewhere, unspecified severity, without behavioral disturbance, psychotic disturbance, mood disturbance, and anxiety; F29 Unspecified psychosis not due to a substance or known physiological condition; R56.9 Unspecified convulsions; E11.51 Type 2 diabetes mellitus with diabetic peripheral angiopathy without gangrene; Z87.440 Personal history of urinary (tract) infections
CPT/HCPCS: 36415; 70450; 80048; 80053; 80305; 81003; 82140; 82150; 82948; 83036; 83605; 83690; 83735; 83880; 84100; 84436; 84439; 84443; 84484; 85025; 85610; 85730; 87081; 93005; 96372; 99285; C1758; G0480; G0482; J1200; J1630; J1815; J2060; J7030